=== PATIENT | female | born 1965 | race Caucasian/White ===

== ENCOUNTER 2019-07-27 14:44 | Observation (INO) | payer OTHER, SELFPAY ==
[2019-07-27] VITALS (7 sets, daily range): BP systolic 103–121; BP diastolic 74–85; PULSE 76–105; RESP 16–18; TEMP 36.1–36.7; O2SAT 98–100; BMI 33.4
--- NOTE | ~2019-07-27 | MR_ITS ---
EXAMINATION: MR brain/brain stem wo/w con EXAM DATE: 07/28/2019 10:54 INDICATION: Left-sided body paresthesia. Frontal headache. TECHNIQUE: Magnetic resonance imaging (MRI) of the brain/brain stem obtained without contrast. Sagit bon T1, axial diffusion, gradient echo (T2*), T1, T2, FLAIR sequences obtained. Patient was then inj ected with 15 cc intravenous Multihance contrast. Axial and coronal postcontrast T1 weighted sequence s obtained. Correlation is made to CTA brain from yesterday. FINDINGS: There are no areas of restricted diffusion to suggest acute infarction. There is no acute hemorrhage seen on the T2*, a hemosiderin sensitive sequence. No intraparenchymal brain mass lesion. There is minimal periventricular and subcortical T2/FLAIR signal hyperintensity, nonspecific but pro bably related to small vessel ischemic disease (microangiopathy). There are no extra-axial collecti ons. Flow voids are seen in the cerebral arteries on the T2-weighted sequences consistent with their expected patency. The orbits are unremarkable. Soft tissue is unremarkable. 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 Otherwise no areas of abnormal enhancement. IMPRESSION: 1. No acute intracranial findings. 2. Incidental right cerebellar DVA, not clinically significant finding. Reviewed, dictated and finalized at location G.
--- NOTE | ~2019-07-27 | MR_ITS ---
EXAMINATION: MR cervical spine wo/w con EXAM DATE: 07/29/2019 09:54 INDICATION: Left-sided weakness. Intermittent paresthesia. TECHNIQUE: Multi-sequential, multiplanar MR images of the cervical spine were obtained without contra st. Axial T2, axial T2 MERGE sequence. Sagittal T1, T2, T2 fat saturation images also obtained. Com parison is made to prior examination from 08/15/2018. FINDINGS: The vertebral bodies are aligned in the AP dimension. Vertebral body and disc heights are well-maintained. There are no suspicious marrow signal abnormalities. The spinal cord signal intensit y and intrinsic morphology is normal. Cervicomedullary junction is normal in appearance. Paraspinal s oft tissue is unremarkable. There are no areas of abnormal enhancement on the post contrast images. Level by level evaluation: C2-C3: Disc does not extend beyond the endplate margin. Uncovertebral joint arthropathy: None. Facet joint arthropathy: None. Neural foraminal stenosis: No stenosis. Central canal stenosis: No stenosis. C3-C4: Disc does not extend beyond the endplate margin. Uncovertebral joint arthropathy: None. Facet joint arthropathy: Mild bilateral. Neural foraminal stenosis: No stenosis. Central canal stenosis: No stenosis. C4-C5: Disc does not extend beyond the endplate margin. Uncovertebral joint arthropathy: Mild right. Facet joint arthropathy: Mild bilateral. Neural foraminal stenosis: No stenosis. Central canal stenosis: No stenosis. C5-C6: Disc does not extend beyond the endplate margin. Uncovertebral joint arthropathy: Mild bilateral. Facet joint arthropathy: Mild bilateral. Neural foraminal stenosis: No stenosis. Central canal stenosis: No stenosis. C6-C7: Disc does not extend beyond the endplate margin. Uncovertebral joint arthropathy: None. Facet joint arthropathy: None. Neural foraminal stenosis: No stenosis. Central canal stenosis: No stenosis. C7-T1: Disc does not extend beyond the endplate margin. Uncovertebral joint arthropathy: None. Facet joint arthropathy: None. Neural foraminal stenosis: No stenosis. Central canal stenosis: No stenosis. IMPRESSION: 1. Mild cervical arthropathy without stenosis. 2. Normal cord signal. Reviewed, dictated and finalized at location A.
--- NOTE | ~2019-07-27 | CT_ITS ---
EXAMINATION: CTA brain carotid DATE: 07/27/2019 16:30 CDT INDICATION: Dizziness and lightheadedness. TECHNIQUE: Computed tomographic angiography (CTA) of the head was performed without and with 100 mL O mnipaque-350 intravenous contrast. CTA of the neck was performed with intravenous contrast. The dose- length product was 907.04 mGy-cm. Maximum intensity projection and volume rendered 3D-reconstructions were created by the technologist on a separate workstation. COMPARISON: CT dated 05/17/2013 FINDINGS: HEAD CTA: Normal brain parenchymal volume. No acute intracranial hemorrhage, infarction, mass or mass effect. No ventriculomegaly or midline shift. Basilar cisterns are patent. Paranasal sinuses and mas toids are pneumatized. No depressed skull fractures. Paranasal sinuses and mastoids are pneumatized. The anterior, middle and posterior cerebral arteries are symmetric without significant stenosis or oc clusion. NECK CTA: No cervical lymphadenopathy. Thyroid gland is unremarkable. There is 0% stenosis of the proximal right internal carotid artery relative to normal distal artery l umen diameter (NASCET criteria). There is 8% stenosis of the proximal left internal carotid artery re lative to normal distal artery lumen diameter. IMPRESSION: 1. 0% stenosis of the proximal right internal carotid artery relative to normal distal artery lumen d iameter (NASCET criteria). 2. 8% stenosis of the proximal left internal carotid artery relative to normal distal artery lumen di ameter. 3: No significant intracranial vascular abnormality. No acute intracranial abnormality. Reviewed, dictated and finalized at location A. IMPRESSION: 1. 0% stenosis of the proximal right internal carotid artery relative to normal distal artery lumen diameter (NASCET criteria). 2. 8% stenosis of the proximal left internal carotid artery relative to normal distal artery lumen diameter. 3: No significant intracranial vascular abnormality. No acute intracranial abno rmality.
--- NOTE | ~2019-07-27 | XR_ITS ---
EXAMINATION: XR chest 1V 07/27/2019 16:19 INDICATION: Weakness and dizziness PROCEDURE: 2 view chest COMPARISON: 05/17/2013 FINDINGS: The lungs are clear. There is chronic right basilar atelectasis/scarring. The cardiomediast inal silhouette is within normal limits. There are no pleural effusions. There is no pneumothorax s uspected. IMPRESSION: 1: NO ACUTE CARDIOPULMONARY DISEASE. Reviewed, dictated and finalized at location A.
--- NOTE | ~2019-07-27 | US_ITS ---
EXAMINATION: US carotid duplex BI DATE: 07/28/2019 12:29 INDICATION: Cerebrovascular accident. Dizziness, lightheadedness. TECHNIQUE: Grayscale, color Doppler, and pulsed Doppler images of the cervical carotid arteries were obtained. The degree of vessel stenosis is placed in one of the following categories: normal, <50%, 5 0-69%, >=70% but less than near-occlusion, near-occlusion, or total occlusion. Note that percent sten osis relative to normal distal artery lumen diameter is indirectly measured from velocity measurement s as described by Farrukh, et al. Radiology 2003; 229:340-346. COMPARISON: 08/06/2019 CTA brain/carotid FINDINGS: RIGHT: The right common carotid artery (CCA) peak systolic velocity (PSV) is 56.6 cm/s. The right internal c arotid artery (ICA) PSV is 84.0 cm/s. The right ICA end-diastolic velocity (EDV) is 41.3 cm/s. The ri t ICA/CCA PSV ratio is 1.5. Grayscale and color Doppler images yield an estimate of less than 50% d iameter reduction from plaque in the ICA. The external carotid artery (ECA) PSV is 57.5 cm/s. There i s antegrade flow in the right vertebral artery. LEFT: The left CCA PSV is 54.7 cm/s. The left ICA PSV is 68.0 cm/s. The left ICA EDV is 3120 cm/s. The left ICA/CCA PSV ratio is 1.2. Grayscale and color Doppler images yield an estimate of less than 50% diam eter reduction from plaque in the ICA. The ECA PSV is 48.3 cm/s. There is antegrade flow in the left vertebral artery. IMPRESSION: 1. Less than 50% stenosis in the right internal carotid artery. 2. Less than 50% stenosis in the left internal carotid artery. Reviewed, dictated and finalized at Location A. Reviewed, dictated and finalized at location A.
--- NOTE | 2019-07-27 14:59 | ECG_ITS ---
Measurements Intervals [place] Rate: 95 P: 57 WA: 171 QRS: 39 QRSD: 101 T: 20 QT: 301 QTc: 379 Interpretive Statements SINUS RHYTHM LOW QRS VOLTAGE IN PRECORDIAL LEADS NONSPECIFIC ST & T-WAVE ABNORMALITY- ANTEROLAT/INF LEADS BORDERLINE ECG Electronically Signed On 07-27-2019 16:09:02 CDT by Jayden Rosas D.O.
[2019-07-27 15:17] LABS: Basophils Percent Auto 0.2 % (0.2-1.2); Eosinophils Percent Auto 0.5 % (0-4.4); Hematocrit 41.4 % (37.0-47.0); Hemoglobin 13.8 g/dL (12.0-15.0); Immature Granulocyte Absolute 0.01 K/mm3 (0.00-0.031); Immature Granulocyte Percent A 0.2 % (0-0.5); Lymphocytes Absolute Auto 2.66 K/mm3 (0.9-3.2); Lymphocytes Percent Auto 48.4 % (18.3-44.2); Mean Corpuscular HGB Conc 33.3 g/dl (32-36); Mean Platelet Volume 9.5 fl (7.4-10.4); Monocytes Absolute Auto 0.5 K/mm3 (0.1-0.6); Monocytes Percent Auto 8.2 % (2.6-8.5); Neutrophils Absolute Auto 2.3 K/mm3 (1.3-6.7); Neutrophils Percent Auto 42.5 % (45.5-73.1); Platelet Count Result 205 k/mm3 (150-375); Red Cell Distribution Width 13.4 % (11.5-14.5); White Blood Count 5.5 K/mm3 (4.5-10.0)
[2019-07-27] MEDS: SODIUM CHLORIDE 0.9% IV 1,000 ML 999 ML IV CONT ×2 (15:18→17:44)
[2019-07-27 15:28] LABS: Blood Urea Nitrogen 18 mg/dL (7-17); Calcium 8.7 mg/dL (8.4-10.2); Carbon Dioxide 30 mmol/L (22-30); Chloride 98 mmol/L (98-107); Estimated CRCL calculation 26 ml/min; Estimated Glomerular Filt Rate > 60; Glucose 156 mg/dL (65-105); Potassium 3.9 mmol/L (3.4-5.0); Sodium 134 mmol/L (137-145)
[2019-07-27 15:30] LABS: INR 0.9; Partial Thromboplastin Time 26.7 SECONDS (22.3-36.8)
[2019-07-27 15:40] LABS: Troponin I < 0.012 ng/mL (0.000-0.034)
--- NOTE | 2019-07-27 15:49 | ED.GENADULT ---
HPI - General Adult General Chief complaint: Unspecified Stated complaint: Numbness left side body - resolved Time Seen by Provider: 07/27/19 15:00 Source: patient Mode of arrival: ambulatory Limitations: no limitations History of Present Illness HPI narrative: Patient is a 53-year-old female who presents to emergency department for evaluation of having had numbness and weakness of the left side of the body that lasted a short period resolved then developed lightheadedness and headache coupled with nausea and vomiting. Patient presents per private vehicle has not had anything for her symptoms denies similar occurrence in the past patient on arrival in the room in no distress Related Data Home Medications Medication Instructions Recorded Confirmed atorvastatin 07/27/19 gabapentin 07/27/19 glimepiride mg 07/27/19 indomethacin 07/27/19 levothyroxine 07/27/19 lisinopril-hydrochlorothiazide tablet 07/27/19 metformin mg PO 07/27/19 sitagliptin [Januvia] mg 07/27/19 tramadol mg 07/27/19 Allergies Allergy/AdvReac Type Severity Reaction Status Date / Time penicillin V Allergy Mild Nausea and Verified 07/27/19 16:50 Vomiting Review of Systems Review of Systems: All systems reviewed & are unremarkable except as noted in HPI and below PMFSH Past Medical History Medical History (Updated 07/27/19 @ 18:26 by Rajendra Olvera PA-C) Obese Social History Social History Smoking status: Never smoker Exam Narrative: Exam Narrative: GENERAL: Well-appearing, well-nourished, and in no acute distress. HEAD: Normocephalic, atraumatic. EYES: PERRLA and EOMI. ENT: Nares clear, no rhinorrhea or epistaxis. Mucous membranes moist. Oropharynx without tonsillar hypertrophy exudate or other lesions. NECK: Supple. No adenopathy or masses. No carotid bruits or JVD CHEST: Clear to auscultation. No respiratory distress. No wheezes rales or rhonchi HEART: Regular rate and rhythm. No murmur heard. Normal peripheral pulses. ABDOMEN: Soft, nontender, nondistended EXTREMITIES: Normal range of motion. No edema. SKIN: Warm, dry, no rash. NEURO: No focal deficits. Alert and oriented x3. Cranial nerves II through XII grossly intact. Normal speech. Cerebellar intact. No pronator drift. Normal [id number] and brwn-vz-ebes PSYCH: Normal mood and affect. Course Consultations Consultation #1: Discussed case with hospitalist who is agreed to accept the patient Date: 07/27/19 Time: 18:20 Vital Signs Vital signs: Vital Signs Temperature 98.1 F 07/27/19 14:44 Pulse Rate 105 H 07/27/19 14:44 Respiratory Rate 18 07/27/19 14:44 Blood Pressure 121/84 07/27/19 14:44 Pulse Oximetry 100 07/27/19 14:44 Temperature 98.1 F 07/27/19 14:44 Pulse Rate 92 07/27/19 17:45 Respiratory Rate 17 07/27/19 17:45 Blood Pressure 103/74 07/27/19 17:45 Pulse Oximetry 98 07/27/19 17:45 Medical Decision Making MDM Narrative Medical decision making narrative: Patient in the room at this time in no distress aware of case findings treatment plan and diagnosis agreeing to stay in hospital for further evaluation of her dizziness lightheadedness and paresthesias patient at this time resting comfortably stroke scale of 0 hydrated in the emergency department was also given aspirin prior to admission Vital Signs Vital Signs: Vital Signs Temperature 98.1 F 07/27/19 14:44 Pulse Rate 105 H 07/27/19 14:44 Respiratory Rate 18 07/27/19 14:44 Blood Pressure 121/84 07/27/19 14:44 Pulse Oximetry 100 07/27/19 14:44 Temperature 98.1 F 07/27/19 14:44 Pulse Rate 92 07/27/19 17:45 Respiratory Rate 17 07/27/19 17:45 Blood Pressure 103/74 07/27/19 17:45 Pulse Oximetry 98 07/27/19 17:45 Lab Data Result diagrams: 07/27/19 15:12 07/27/19 15:12 Labs: Lab Results 07/27/19 07/27/19 07/27/19 Range/Units
[2019-07-27 15:51] LABS: Glucose Point of Care 165 (65-105)
[2019-07-27] MEDS: KETOROLAC 30 MG/ML VIAL (*BKC) IV PUSH (17:44)
[2019-07-27] MEDS: ASPIRIN 325 MG TABLET PO (18:30)
--- NOTE | 2019-07-27 20:08 | ADMGEN ---
This patient, Ruchi Jones, was admitted to 2 Medical Room 254-01. Patient/family oriented to hospital policies and general routines including ID bracelet, bed and alarms, visiting hours, pain management, procedures, bathroom and other care routines, personal items, smoking policy, room service/diet, and visiting hours. Valuables list has been completed. Information on how to activate the Rapid Response Team has been discussed. Patient/Family are encouraged to report perceived risks to care and to ask questions if they do not understand what they are told or what they should do.
[2019-07-27] MEDS: LACTATED RINGERS 1,000 ML 125 ML IV CONT (20:33)
[2019-07-27 21:17] LABS: Glucose Point of Care 155 (65-105)
[2019-07-27 21:17] LABS: Glucose Point of Care 118 (65-105)
--- NOTE | 2019-07-27 21:36 | PM.IMHP ---
H&P: HPI History of Present Illness Chief complaint: cva Narrative: Ruchi Jones is a 53 year old female who has a history of having diabetes type 2, hyperlipidemia, hypothyroidism, and hypertension. The patient has not had any previous TIAs or CVAs. She is on gabapentin for peripheral neuropathy to her hands and feet. The patient stated she was getting ready to eat today and she developed some numbness and tingling on the left side of her body and was having difficulty speaking. She said she could hear that her speech was garbled when she tried to talk. She stated that her left leg was numb and she could not move it. She stated that she could not walk. She had some nausea vomiting and some dizziness. The patient told her son how she was feeling and the patient was brought to the emergency room in a private vehicle. The patient does have some history of anxiety as well. The patient was in no distress when she came to the emergency room and she does not take any thing to resolve her symptoms. Patient is back to her baseline and she is not having any slurred speech or difficulty walking. The patient also stated that she had a severe headache prior to the numbness and tingling. The patient and her family are concerned that she may have had a stroke. Or possibly a TIA. CTA of the head neck shows 0% stenosis of the right internal carotid artery in a% stenosis of the left internal carotid. Normal brain nothing acute. The patient was given an aspirin in the emergency room. She was given Toradol for pain. She has chronic back pain is chronically on tramadol for 3 bulging disc. She was given IV fluids and Tylenol as well. Date of service 07/27/2019. The patient stated that she had her family member check her blood sugar prior to coming and her blood sugar was a around 150. She thought that maybe her blood sugar was low but it was not at all. Review of Systems Review of Systems: All systems reviewed & are unremarkable except as noted in HPI and below Constitutional: Constitutional: Reports as per HPI and Reports no additional constitutional complaints Eyes: Eyes: Reports as per HPI and Reports no additional eye complaints ENT: Reports system reviewed and no additional complaints, except as documented and Reports Normal hearing present Cardiovascular: Cardiovascular: Reports no additional cardiovascular complaints Respiratory: Respiratory: Reports no additional respiratory complaints and Reports no additional respiratory complaints Gastrointestinal: Gastrointestinal: Reports as per HPI and Reports no additional gastrointestinal complaints Musculoskeletal: Musculoskeletal: Reports no additional musculoskeletal complaints Integumentary/Breasts: Skin/Breast: Reports system reviewed and no additional complaints, except as docu and Reports as per HPI Neurologic: Reports system reviewed and no additional complaints, except as documented, Reports as per HPI and Reports Normal hearing present Psychiatric: Psychiatric: Reports no additional psychiatric complaints and Reports as per HPI Endocrine: Endocrine: Reports no additional endocrine complaints Hematologic/Lymphatic: Hematologic/Lymphatic: Reports no additional hematologic/lymphatic complaints Allergic/Immunologic: Allergic/Immunologic: Reports no additional allergic/immunologic complaints [facility] Past Medical History Medical History (Updated 07/27/19 @ 21:56 by Kira Paz NP) Bipolar disorder Degenerative disc disease Depression with anxiety Diabetes type 2, controlled Fibromyalgia History of DVT of lower extremity Postoperatively after her hysterectomy Hyperlipidemia Hypertension Hypothyroidism Kidney stones Lupus Obese Peripheral neuropathy Hands and feet Pulmonary emboli Postop hysterectomy Surgical History Surgical History (Updated 07/27/19 @ 21:56 by Kira Paz NP) H/O tubal ligation H/O: hysterectomy Total vaginal Status post debridement MRSA
[2019-07-27] MEDS: FAMOTIDINE 20 MG/2 ML VIAL IV PUSH (22:48)
[2019-07-27] MEDS: GABAPENTIN 300 MG CAPSULE 600 MG PO (22:49)
[2019-07-27] MEDS: TRAMADOL HCL 50 MG TABLET 100 MG PO (22:49)
[2019-07-27 23:16] LABS: Barbiturate Screen Urine Negative (Negative); Benzodiazepines Screen Urine Negative (Negative)
[2019-07-27 23:24] LABS: Amphetamine Screen Urine Negative (Negative); Cannabinoid Screen Urine Negative (Negative); Cocaine Screen Urine Negative (Negative); Methadone Screen Urine Negative (Negative); Opiate Screen Urine Negative (Negative)
[2019-07-27 23:53] LABS: Phencyclidine Screen Urine Negative (Negative)
[2019-07-28] VITALS (10 sets, daily range): BP systolic 91–118; BP diastolic 58–82; PULSE 68–83; RESP 14–16; TEMP 36–36.4; O2SAT 96–99
[2019-07-28 05:32] LABS: Blood Urea Nitrogen 15 mg/dL (7-17); Calcium 7.9 mg/dL (8.4-10.2); Carbon Dioxide 27 mmol/L (22-30); Chloride 107 mmol/L (98-107); Estimated CRCL calculation 62 ml/min; Estimated Glomerular Filt Rate > 60; Glucose 75 mg/dL (65-105); Magnesium 1.7 mg/dL (1.6-2.3); Potassium 3.6 mmol/L (3.4-5.0); Sodium 137 mmol/L (137-145)
[2019-07-28 05:34] LABS: Basophils Percent Auto 0.4 % (0.2-1.2); Eosinophils Absolute Auto 0.1 K/mm3 (0-0.3); Hematocrit 36.4 % (37.0-47.0); Hemoglobin 12.1 g/dL (12.0-15.0); Immature Granulocyte Absolute 0.01 K/mm3 (0.00-0.031); Immature Granulocyte Percent A 0.2 % (0-0.5); Lymphocytes Absolute Auto 2.33 K/mm3 (0.9-3.2); Lymphocytes Percent Auto 47.8 % (18.3-44.2); Mean Corpuscular HGB Conc 33.2 g/dl (32-36); Mean Corpuscular Volume 90.1 fl (80-100); Mean Platelet Volume 9.4 fl (7.4-10.4); Monocytes Absolute Auto 0.4 K/mm3 (0.1-0.6); Monocytes Percent Auto 7.6 % (2.6-8.5); Neutrophils Absolute Auto 2.1 K/mm3 (1.3-6.7); Platelet Count Result 170 k/mm3 (150-375); Red Blood Count 4.04 M/mm3 (4.2-5.4); Red Cell Distribution Width 13.6 % (11.5-14.5); White Blood Count 4.9 K/mm3 (4.5-10.0)
[2019-07-28 06:38] LABS: Folic Acid 8.1 ng/mL (2.76->20); Thyroid Stimulating Hormone Reflex 0.363 uIU/mL (0.465-4.68)
[2019-07-28 06:44] LABS: Glucose Point of Care 72 (65-105)
[2019-07-28] MEDS: LEVOTHYROXINE SODIUM 75 MCG TABLET PO (06:44)
[2019-07-28] MEDS: MAGNESIUM SULF 2 GM/WATER 50ML 2 GM/50 ML BAG IVPB (08:11)
[2019-07-28] MEDS: FAMOTIDINE 20 MG/2 ML VIAL IV PUSH ×2 (08:12→20:49)
[2019-07-28] MEDS: GLIMEPIRIDE 2 MG TABLET PO (08:12)
[2019-07-28] MEDS: ASPIRIN 81 MG ENTERIC TABLET PO (08:12)
[2019-07-28] MEDS: ATORVASTATIN 20 MG TABLET PO (08:12)
[2019-07-28] MEDS: GABAPENTIN 300 MG CAPSULE 600 MG PO ×3 (08:12→20:49)
[2019-07-28] MEDS: INDOMETHACIN 25 MG CAPSULE 50 MG PO (08:13)
[2019-07-28] MEDS: TRAMADOL HCL 50 MG TABLET 100 MG PO ×2 (08:13→20:49)
[2019-07-28] MEDS: ONDANSETRON INJ 4 MG/2 ML VIAL IV PUSH (11:50)
--- NOTE | 2019-07-28 12:03 | PC.NURSE ---
Patient returned from MRI and is now complaining of left arm numbness and weakness and a headache rated 10/10. Patient also states she is nauseated. 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 Light sensitivity noted to left eye especially. VSS: HR 75, BP 120/80, pulse ox 99% on room air and RR 20. Ariana Templeton PA here to see patient and informed of patient complaints.
[2019-07-28 12:04] LABS: Glucose Point of Care 163 (65-105)
--- NOTE | 2019-07-28 13:48 | CONS_ITS ---
DATE OF CONSULTATION: 07/27/2019 HISTORY OF PRESENT ILLNESS: A 53-year-old right-handed female has been admitted to the hospital through the emergency room for the possibility of the stroke. As per the information available, she was getting ready to eat when she developed numbness and tingling on the left side of her body and started having difficulties in speech. She herself could appreciate that her speech was garbled. At the same time, her left lower extremity became numb and she had difficulties in moving it. She was unable to walk and also she felt somewhat nauseous and dizzy. Her son brought her to the emergency room. She is known to have anxiety, though she does not take any specific medication for that. By the time she came to the emergency room, her neuro status was to the baseline, but she complained of headache. Raising the possibility of stroke, further evaluation was done in the emergency room. The CTA of the head and neck revealed no significant stenosis of the internal carotid arteries and so as the intracranial circulation. She was started on aspirin, given Toradol for the pain. She does have a history of chronic back pain because of the underlying bulging disk. Additionally, she has ongoing history of: 1. Type 2 diabetes mellitus. 2. Hyperlipidemia. 3. Hypothyroidism. 4. Hypertension. 5. Degenerative disk disease. 6. Anxiety with depression, underlying bipolar disorder. 7. Renal stones. 8. Lupus. 9. Peripheral neuropathy secondary to underlying diabetes mellitus, but also history of pulmonary emboli during postop hysterectomy. She has also undergone debridement for the MRSA to the left lower extremity. SOCIAL HISTORY: She is never drinker, used to be former smoker. MEDICATIONS: At the time of admission to the hospital, she was taking multiple medications, which were listed: 1. Atorvastatin 20 mg daily. 2. Gabapentin 600 mg 3 times a day. 3. Glimepiride 2 mg daily. 4. Indomethacin 5 mg daily. 5. Levothyroxine 75 daily. 6. Lisinopril with hydrochlorothiazide 1 tablet daily. 7. Metformin 1000 mg daily. 8. Sitagliptin 100 mg daily. 9. Tramadol 100 mg twice a day. ALLERGIES: SHE IS ALLERGIC TO PENICILLIN V. PHYSICAL EXAMINATION: VITAL SIGNS: On initial evaluation, she was found to be afebrile, normotensive with pulse of 105, pulse ox 100. GENERAL: Examination revealed her to be awake, alert, cooperative, in no obvious acute distress. HEENT: Head was normocephalic with no cranial bruits. Ear, nose, throat examination was normal. NECK: Supple with no cervical bruits. No thyromegaly. No lymphadenopathy. HEART: Regular with no murmur. LUNGS: Clear to auscultation. ABDOMEN: Soft with no organomegaly. NEUROLOGICAL: She is awake, alert, oriented x3. Speech not dysphasic, not dysarthric, not dysphonic. Pupils round, regular. Paige of vision full. Extraocular movements full. Face symmetrical. Tongue midline. Motor examination revealed her to have no drift of one side or other side. Reflexes are symmetrical. Plantars are downgoing. There is no evidence of gross cerebellar deficit. LABORATORY DATA: Evaluation up until now has documented her to have normal CBC, normal basic metabolic panel with sodium of 134, glucose of 156, troponin less than 0.012. IMAGING DATA: Negative CT scan of the head, negative CTA of the head and neck and negative MRI of the brain as well except the incidental right cerebellar developmental venous anomaly. Plan at this stage is to continue her atorvastatin, diabetic treatment and also aspirin 81 mg daily. She could have as an outpatient EMG nerve conduction study also for the documentation of the neuropathic process. [place]
--- NOTE | 2019-07-28 13:55 | PM.IMPN ---
Progress Note: A&P Assessment and Plan (1) Left sided numbness: Code(s): R20.0 - Anesthesia of skin Status: Acute Assessment and Plan: Patient describes a 3-month history of intermittent episodes of numbness/tingling/shooting pain down left arm and left leg. These episodes occur almost daily and sometimes multiple times per day over the last 3 months. Left arm and leg are weaker than right on exam. She describes she sometimes recently feels like her left foot is dragging a bit. MRI brain shows no acute intracranial findings and an incidental right cerebellar venous anomaly not felt to be clinically significant. Patient denies family history of MS. Neurology consulted - appreciate recommendations. Obtain MRI c-spine to rule out further lesions. Symptoms may be secondary to complex migraine if MRI is clear. (2) Migraine: Qualifiers: Intractability: not intractable Migraine type: unspecified Status migrainosus presence: without status migrainosus Qualified Code(s): G43.909 - Migraine, unspecified, not intractable, without status migrainosus Code(s): G43.909 - Migraine, unspecified, not intractable, without status migrainosus Status: Acute Assessment and Plan: Patient notes, in addition to the symptoms above, she started with a new headache yesterday that has been persistent. She has photophobia and nausea. She notes a remote history of migraines. Continue supportive care with pain control and antiemetic. 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 Continue to monitor accu-cheks and cover with SSI. Continue home glimepiride and Januvia. Home metformin is held. (4) Hypertension: Qualifiers: Hypertension type: unspecified Qualified Code(s): I10 - Essential (primary) hypertension Code(s): I10 - Essential (primary) hypertension Status: Chronic Assessment and Plan: With some BP readings on the lower end, home lisinopril-HCTZ held. Monitor BP and adjust treatment as needed. (5) Hyperlipidemia: Qualifiers: Hyperlipidemia type: unspecified Qualified Code(s): E78.5 - Hyperlipidemia, unspecified Code(s): E78.5 - Hyperlipidemia, unspecified Status: Chronic Assessment and Plan: Continue with atorvastatin (6) Depression with anxiety: Code(s): F41.8 - Other specified anxiety disorders Status: Chronic Assessment and Plan: Stable today. Not on any medications. Continue to monitor. (7) Hypothyroidism: Qualifiers: Hypothyroidism type: unspecified Qualified Code(s): E03.9 - Hypothyroidism, unspecified Code(s): E03.9 - Hypothyroidism, unspecified Status: Chronic Assessment and Plan: Continue home synthroid. (8) Fibromyalgia: Code(s): M79.7 - Fibromyalgia Status: Chronic Assessment and Plan: Continue with her Ultram and gabapentin. Subjective Date/time seen: 07/28/19 1245 Interval history: Ms. Jones is a 53yo F admitted for left-sided numbness, tingling, and pain. She describes a significant headache which she notes is frontal and goes down the back of her head and neck. She is having sensitivity to light and nausea without emesis. She describes numbness and tingling to her left arm and left leg that is intermittent and has been occurring over the last 3 months. She describes a shooting pain down her arm and leg when thi
[2019-07-28 16:33] LABS: Glucose Point of Care 143 (65-105)
[2019-07-28 20:59] LABS: Glucose Point of Care 132 (65-105)
[2019-07-29] VITALS: BP 98/54; PULSE 78; PULSE 80; RESP 16; TEMP 36.3; O2SAT 98
[2019-07-29 04:00] VITALS: BP 98/67; PULSE 71; PULSE 77; RESP 16; TEMP 36.1; O2SAT 98
[2019-07-29] MEDS: LEVOTHYROXINE SODIUM 75 MCG TABLET PO (05:57)
[2019-07-29 06:10] LABS: Free T4 Free Thyroxine Reflex 1.23 ng/dL (0.78-2.19)
[2019-07-29 06:18] LABS: Glucose Point of Care 112 (65-105)
[2019-07-29 08:00] VITALS: PULSE 88
[2019-07-29] MEDS: GABAPENTIN 300 MG CAPSULE 600 MG PO ×2 (08:55→13:22)
[2019-07-29] MEDS: TRAMADOL HCL 50 MG TABLET 100 MG PO (08:56)
[2019-07-29] MEDS: ASPIRIN 81 MG ENTERIC TABLET PO (08:56)
[2019-07-29] MEDS: FAMOTIDINE 20 MG/2 ML VIAL IV PUSH (08:56)
[2019-07-29] MEDS: ATORVASTATIN 20 MG TABLET PO (08:56)
[2019-07-29] MEDS: GLIMEPIRIDE 2 MG TABLET PO (08:56)
[2019-07-29] MEDS: INDOMETHACIN 25 MG CAPSULE 50 MG PO (08:56)
--- NOTE | 2019-07-29 09:02 | PC.NURSE ---
To MRI via wheelchair with transporter
[2019-07-29 10:00] VITALS: BP 134/88; PULSE 77; RESP 16; TEMP 36.3; O2SAT 100
[2019-07-29 11:37] LABS: Glucose Point of Care 102 (65-105)
[2019-07-29 12:00] VITALS: PULSE 77
--- NOTE | 2019-07-29 12:51 | WPDNEUROPN ---
Progress Note: A&P Assessment and Plan (1) Migraine: Qualifiers: Migraine type: unspecified Status migrainosus presence: without status migrainosus Intractability: not intractable Qualified Code(s): G43.909 - Migraine, unspecified, not intractable, without status migrainosus Code(s): G43.909 - Migraine, unspecified, not intractable, without status migrainosus Status: Acute (2) Left sided numbness: Code(s): R20.0 - Anesthesia of skin Status: Acute (3) Fibromyalgia: Code(s): M79.7 - Fibromyalgia Status: Chronic (4) Degenerative disc disease: Status: Chronic (5) Hypothyroidism: Qualifiers: Hypothyroidism type: unspecified Qualified Code(s): E03.9 - Hypothyroidism, unspecified Code(s): E03.9 - Hypothyroidism, unspecified Status: Chronic (6) Bipolar disorder: Code(s): F31.9 - Bipolar disorder, unspecified Status: Chronic (7) Depression with anxiety: Code(s): F41.8 - Other specified anxiety disorders Status: Chronic (8) Lupus: Code(s): M32.9 - Systemic lupus erythematosus, unspecified Status: Chronic (9) Peripheral neuropathy: Code(s): G62.9 - Polyneuropathy, unspecified Status: Chronic (10) Hyperlipidemia: Qualifiers: Hyperlipidemia type: unspecified Qualified Code(s): E78.5 - Hyperlipidemia, unspecified Code(s): E78.5 - Hyperlipidemia, unspecified Status: Chronic (11) Diabetes type 2, controlled: Qualifiers: 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 use: without watermelon harvesting supervisor use Diabetes mellitus complication status: without complication Qualified Code(s): E11.9 - Type 2 diabetes mellitus without complications Code(s): E11.9 - Type 2 diabetes mellitus without complications Status: Chronic (12) Brain TIA: Code(s): G45.9 - Transient cerebral ischemic attack, unspecified Status: Acute (13) Hypertension: Qualifiers: Hypertension type: unspecified Qualified Code(s): I10 - Essential (primary) hypertension Code(s): I10 - Essential (primary) hypertension Status: Chronic Additional Plan trial of immitrex Review of Systems Review of Systems: All systems reviewed & are unremarkable except as noted in HPI and below Exam Const: General: healthy appearing Eyes: General: appearance normal, both eyes and all related structures Neck: Neck: full ROM Resp: Auscultation: clear to auscultation bilaterally Neuro: General: patient oriented x3 Cranial nerves: Yes CN's II-XII intact bilaterally Cognition (Neuro): normal cognition Motor exam (neuro): 5/5 motor strength present throughout Psych: Appearance: grossly normal Mental Status: mental status grossly normal Affect: normal affect Attitude: cooperative Thought process: Normal thought process present Thought content: Yes Normal thought content present Insight: Fair insight present (Psych) Judgement: Fair judgement present (Psych) Objective Data Vital Signs Vital Signs: Vital Signs - 24 hr 07/28/19 14:00 07/28/19 16:00 07/28/19 17:53 Temperature 36.1 C L 36.4 C L Pulse Rate 73 72 81 Respiratory Rate 14 14 Blood Pressure 118/79 113/70 Pulse Oximetry 99 97 07/28/19 20:00 07/29/19 00:00 07/29/19 04:00 Temperature 36.2 C L 36.3 C L 36.1 C L Pulse Rate 80 78 77 Respiratory Rate 16 16 16 Blood Pressure 108/77 98/54 L 98/67 L Pulse Oximetry 99 98 98 07/29/19 08:00 07/29/19 10:00 Temperature 36.3 C L Pulse Rate 88 77 Respiratory Rate 16 Blood Pressure 134/88 Pulse Oximetry 100 Intake/Output Intake/Output: Intake & Output 07/26/19 07/27/19 07/28/19 07/29/19 23:59 23:59 23:59 23:59 Intake Total 2225 1470 300 Output Total 520 400 Balance 2225 950 -100 Meds/Results Medications: Active Medications Generic Name Dose Route Start Last Admin Trade Name Freq PRN Reason Stop Dose Admin Aspirin 81 mg 07/28/19
[2019-07-29] MEDS: SUMAtriptan SUCCINATE 25 MG TABLET PO (13:22)
[2019-07-29 14:00] VITALS: BP 118/74; PULSE 65; RESP 18; TEMP 36.3; O2SAT 96
--- NOTE | 2019-07-29 14:57 | PM.DS ---
DS: Diagnosis Admitting Diagnosis Admitting Diagnosis: Transient cerebral ischemic attack, unspecified Discharge Diagnosis (1) Left sided numbness: Code(s): R20.0 - Anesthesia of skin Status: Acute Assessment and Plan: Date of Service 07/29/19 Ms. Jones is a 53yo F with history of hypertension, hyperlipidemia, hypothyroidism, fibromyalgia, anxiety, depression, and bipolar disorder who presented to the ED for evaluation of headache and slurred speech. She described intermittent numbness, tingling, shooting pain to left arm and left leg that had been occurring for around 3 months. Her headache was new and began the day prior to arrival with associated photosensitivity and nausea. She continued to have a headache throughout her admission which was her main complaint. MRI brain showed no acute intracranial findings, incidental right cerebellar developmental venous anomaly was present, nonspecific small hyperdensity present. She denied family history of MS. Carotid Dopplers were within normal limits. C-spine MRI was obtained and unremarkable. Etiology of her symptoms unclear, but could be associated with complex migraine. She was evaluated by Neurology, Dr. Forte, who recommended electromyography ( EMG ) as an outpatient. Her left arm and left leg strength was weaker compared to right on exam however she was still able to ambulate independently. She was given a trial of Imitrex for her migraine. She was hemodynamically stable for discharge 07/29/2019 with instructions to call Dr. Forte's office tomorrow to schedule EMG and also follow-up with primary care. She was educated on return to ER instructions for any worsening symptoms. Consultation: - Neurolog - Dr Forte (2) Migraine: Qualifiers: Migraine type: unspecified Status migrainosus presence: without status migrainosus Intractability: not intractable Qualified Code(s): G43.909 - Migraine, unspecified, not intractable, without status migrainosus Code(s): G43.909 - Migraine, unspecified, not intractable, without status migrainosus Status: Acute Assessment and Plan: Patient notes, in addition to the symptoms above, she started with a new headache yesterday that has been persistent. She has photophobia and nausea. She notes a remote history of migraines as a teenager but non since then. Trial of imitrex. (3) Diabetes type 2, controlled: Qualifiers: Diabetes mellitus termination clerk insulin use: without termination clerk use Diabetes mellitus complication status: without complication Qualified Code(s): E11.9 - Type 2 diabetes mellitus without complications Code(s): E11.9 - Type 2 diabetes mellitus without complications Status: Chronic Assessment and Plan: A1c 6.0. Blood sugars stable, continue home oral hypoglycemics and follow up with PCP. (4) Hypertension: Qualifiers: Hypertension type: unspecified Qualified Code(s): I10 - Essential (primary) hypertension Code(s): I10 - Essential (primary) hypertension Status: Chronic Assessment and Plan: With some BP readings on the lower end, home lisinopril-HCTZ held. BP more stable at discharge - resume her home medications at discharge and follow up with PCP. (5) Hyperlipidemia: Qualifiers: Hyperlipidemia type: unspecified Qualified Code(s): E78.5 - Hyperlipidemia, unspecified Code(s): E78.5 - Hyperlipidemia, unspecified Status: Chronic Assessment and Plan: Continue with atorvastatin (6) Depression with anxiety: Code(s): F41.8 - Other specified anxiety disorders Status: Chronic Assessment and Plan: Stable today. Not on any medications. Continue to monitor. (7) Hypothyroidism: Qualifiers: Hypothyro
== END 2019-07-29 16:25 | disposition home or self-care (01) ==
LOC: ANHED 18:35 → ANH2MED 07-28 07:14
PROVIDERS: Emergency Medicine Emergency Medical Services; Nurse Practitioner; Admitting Provider Internal Medicine; Emergency Provider Emergency Medicine; PCP Family Medicine Adolescent Medicine; Visit Provider Physician Assistant
DX: G43.909 Migraine, unspecified, not intractable, without status migrainosus (principal); R20.0 Anesthesia of skin; E11.42 Type 2 diabetes mellitus with diabetic polyneuropathy; I10 Essential (primary) hypertension; E78.5 Hyperlipidemia, unspecified; F41.8 Other specified anxiety disorders; E03.9 Hypothyroidism, unspecified; M79.7 Fibromyalgia; M32.9 Systemic lupus erythematosus, unspecified; F31.9 Bipolar disorder, unspecified; Z79.84 Long term (current) use of oral hypoglycemic drugs; Z79.899 Other long term (current) drug therapy; Z86.711 Personal history of pulmonary embolism; Z86.718 Personal history of other venous thrombosis and embolism; Z87.891 Personal history of nicotine dependence; Z88.0 Allergy status to penicillin
CPT/HCPCS: 36415; 70496; 70498; 70553; 71045; 72156; 80048; 80307; 81025; 82607; 82746; 82948; 83036; 83735; 84439; 84443; 84480; 84484; 85025; 85610; 85730; 93005; 93880; 96361; 96365; 96374; 96375; 96376; 99285; A9270; A9577; G0378; G0379; J0131; J1885; J2405; J3475; J7030; J7120; Q9967

== ENCOUNTER 2019-10-04 08:13 | Outpatient (CLI) | payer OTHER, SELFPAY ==
--- NOTE | 2019-10-04 10:45 | NEURO_ITS ---
Patient Number: [id number] Impression: # Complains of pain and numbness of hands. # Left Carpal Tunnel Syndrome. # Non-localizing left ulnar neuropathy. # Normal needle/EMG exam. Nerve Conduction Studies Anti Sensory Summary Table Stim Site NR Peak (ms) P-T Amp (?V) Site1 Site2 Delta-P (ms) Dist (cm) Tai (m/s) Left Median Anti Sensory (2-3nd Digit) Wrist 3.8 61.8 Wrist 2-3nd Digit 3.8 14.0 37 Wrist 3.8 97.3 Wrist 2-3nd Digit 3.8 14.0 37 Right Median Anti Sensory (2-3nd Digit) Wrist 3.2 50.0 Wrist 2-3nd Digit 3.2 14.0 44 Wrist 3.3 29.9 Wrist 2-3nd Digit 3.2 14.0 44 Left Radial Anti Sensory (Base 1st Digit) Wrist 2.0 57.6 Wrist Base 1st Digit 2.0 0.0 Right Radial Anti Sensory (Base 1st Digit) Wrist 2.1 30.1 Wrist Base 1st Digit 2.1 0.0 Left Ulnar Anti Sensory (5th Digit) Wrist 2.7 79.7 Wrist 5th Digit 2.7 14.0 52 Right Ulnar Anti Sensory (5th Digit) Wrist 2.3 61.7 Wrist 5th Digit 2.3 14.0 61 Motor Summary Table Stim Site NR Onset (ms) O-P Amp (mV) Site1 Site2 Delta-0 (ms) Dist (cm) Tai (m/s) Left Median Motor (Abd Poll Brev) Wrist 4.5 4.0 Elbow Wrist 4.8 26.0 54 Elbow 9.3 2.5 Right Median Motor (Abd Poll Brev) Wrist 3.4 1.4 Elbow Wrist 4.4 24.0 55 Elbow 7.8 0.9 Left Ulnar Motor (Abd Dig Minimi) Wrist 2.7 7.9 A Elbow Wrist 5.2 25.0 48 A Elbow 7.9 6.9 B Elbow Wrist 4.3 20.0 47 B Elbow 7.0 5.4 Right Ulnar Motor (Abd Dig Minimi) Wrist 2.6 6.1 A Elbow Wrist 4.8 26.0 54 A Elbow 7.4 5.3 F Wave Studies NR F-Lat (ms) L-R F-Lat (ms) Left Median (Mrkrs) (Abd Poll Brev) 27.98 0.38 Right Median (Mrkrs) (Abd Poll Brev) 27.60 0.38 Left Ulnar (Mrkrs) (Abd Dig Min) 27.89 1.29 Right Ulnar (Mrkrs) (Abd Dig Min) 26.61 1.29 EMG Side Muscle Nerve Root Ins Act Fibs Amp Dur Recrt Comment Right 1stDorInt Ulnar C8-T1 Nml Nml Nml Nml Nml Right Ext Indicis Radial (Post Int) C7-8 Nml Nml Nml Nml Nml Right Ext Digitorum Radial (Post Int) C7-8 Nml Nml Nml Nml Nml Right BrachioRad Radial C5-6 Nml Nml Nml Nml Nml Right PronatorTeres Median C6-7 Nml Nml Nml Nml Nml Right Abd Poll Brev Median C8-T1 Nml Nml Nml Nml Nml Left 1stDorInt Ulnar C8-T1 Nml Nml Nml Nml Nml Left Ext Indicis Radial (Post Int) C7-8 Nml Nml Nml Nml Nml Left Ext Digitorum Radial (Post Int) C7-8 Nml Nml Nml Nml Nml Left BrachioRad Radial C5-6 Nml Nml Nml Nml Nml Left PronatorTeres Median C6-7 Nml Nml Nml Nml Nml Left Abd Poll Brev Median C8-T1 Nml Nml Nml Nml Nml MTDD
== END 2019-10-04 08:14 | disposition home or self-care (01) ==
LOC: ANHNEURO 08:15
PROVIDERS: PCP Family Medicine Adolescent Medicine; Visit Provider Psychiatry & Neurology Neurology
DX: G56.02 Carpal tunnel syndrome, left upper limb (principal); G56.22 Lesion of ulnar nerve, left upper limb
CPT/HCPCS: 95886; 95911

== ENCOUNTER 2019-10-23 10:42 | Outpatient (CLI) | payer OTHER, SELFPAY ==
[2019-10-23 11:26] LABS: Alanine Aminotransferase 31 U/L (4-35); Albumin Level 4.1 g/dL (3.5-5.1); Alkaline Phosphatase 80 U/L (38-126); Anion Gap 10.2 mmol/L (7-16); Aspartate Amino Transferase 29 U/L (14-36); Blood Urea Nitrogen 18 mg/dL (7-17); Calcium 8.7 mg/dL (8.4-10.2); Carbon Dioxide 27 mmol/L (22-30); Chloride 103 mmol/L (98-107); Cholesterol 169 mg/dL (0-200); Estimated Glomerular Filt Rate > 60; Glucose 154 mg/dL (65-105); HDL Direct 55 mg/dL; Potassium 4.2 mmol/L (3.4-5.0); Sodium 136 mmol/L (137-145); Triglycerides 97 mg/dL (<150)
[2019-10-23 11:37] LABS: LDL Cholesterol Direct 90 mg/dL
[2019-10-23 11:57] LABS: Thyroid Stimulating Hormone 0.272 uIU/mL (0.465-4.680)
== END 2019-10-23 10:43 | disposition home or self-care (01) ==
PROVIDERS: PCP Family Medicine Adolescent Medicine; Visit Provider Physician Assistant
DX: E11.42 Type 2 diabetes mellitus with diabetic polyneuropathy (principal); I10 Essential (primary) hypertension; E78.00 Pure hypercholesterolemia, unspecified; E03.9 Hypothyroidism, unspecified
CPT/HCPCS: 36415; 80053; 80061; 84443

== ENCOUNTER 2020-01-22 12:27 | Outpatient (CLI) | payer OTHER, SELFPAY ==
--- NOTE | 2020-01-23 09:19 | WPDNEUROLOGY ---
Neurology EEG Report General Information Date of Study: 01/22/20 TEST eeg DIAGNOSIS seizures CONDITION OF RECORDING Awake drowsy and sleep EEG NUMBER [id number] CLINICAL HISTORY patient reported she was here in the hospital 6 months ago for episodes of extreme weakness, aphasia and confusion and still having these symptoms periodically EEG DESCRIPTION basic resting occipital frequency consists of low to medium voltage 8 to 10 hertz per 2nd alpha admixed with low-voltage 15 to 18 hertz per 2nd beta during brief periods of wakefulness. During drowsiness low-voltage beta activity seen diffusely admixed with waxing and waning posterior alpha rhythm. Bilateral symmetrical sleep activity seen during sleep. Hyperventilation not done photic stimulation produced poor Dr.. Non paroxysmal. Nonfocal. Nonlateralizing. IMPRESSION No significant abnormalities noted
== END 2020-01-22 12:28 | disposition home or self-care (01) ==
PROVIDERS: PCP Family Medicine Adolescent Medicine; Visit Provider Psychiatry & Neurology Neurology
DX: R56.9 Unspecified convulsions (principal)
CPT/HCPCS: 95816

== ENCOUNTER 2020-10-03 09:34 | Outpatient (CLI) | payer OTHER, SELFPAY ==
[2020-10-03 19:24] LABS: Alanine Aminotransferase 25 U/L (4-35); Albumin Level 4.1 g/dL (3.5-5.1); Alkaline Phosphatase 95 U/L (38-126); Anion Gap 9 mmol/L (8-16); Aspartate Amino Transferase 24 U/L (14-36); Bilirubin,Total 1.3 mg/dL (0.2-1.3); Blood Urea Nitrogen 20 mg/dL (7-17); Calcium 9.4 mg/dL (8.4-10.2); Carbon Dioxide 26 mmol/L (22-30); Chloride 98 mmol/L (98-107); Cholesterol 170 mg/dL (0-200); Estimated Glomerular Filt Rate > 60; Glucose 233 mg/dL (65-110); HDL Direct 52 mg/dL; Sodium 133 mmol/L (137-145); Triglycerides 123 mg/dL (<150)
[2020-10-03 19:25] LABS: Hemoglobin A1C 9.8 % (<5.7)
[2020-10-03 19:35] LABS: LDL Cholesterol Direct 89 mg/dL
== END 2020-10-03 09:35 | disposition home or self-care (01) ==
LOC: ANHBWCLAB 09:36
PROVIDERS: PCP Family Medicine Adolescent Medicine; Visit Provider Family Medicine Adolescent Medicine
DX: E11.42 Type 2 diabetes mellitus with diabetic polyneuropathy (principal); E78.00 Pure hypercholesterolemia, unspecified; E03.9 Hypothyroidism, unspecified
CPT/HCPCS: 36415; 80053; 80061; 83036; 84443

== ENCOUNTER 2020-11-25 17:26 | Outpatient (CLI) | payer OTHER, SELFPAY ==
--- NOTE | ~2020-11-25 | MM_ITS ---
EXAMINATION: MM screening ashley BI w radha HISTORY: Screening mammogram TECHNIQUE: Craniocaudal and mediolateral oblique 3-D tomosynthesis images were obtained and synthetic 2-D images were generated. CAD analysis was submitted and interpreted. COMPARISON: 05/10/2018, 02/09/2016, 02/18/2015 bilateral digital screening mammogram examinations BREAST PARENCHYMAL COMPOSITION: There are scattered areas of fibroglandular density. FINDINGS: There is no evidence of suspicious mass, calcification, or architectural distortion to sugg est malignancy in either breast. There has been no suspicious interval change. IMPRESSION: 1. No mammographic evidence of malignancy. 2. Recommend routine screening mammography in one year. BI-RADS Category 1: Negative Reviewed, dictated and finalized at location A.
== END 2020-11-25 17:27 | disposition home or self-care (01) ==
LOC: ANHIMG 17:28
PROVIDERS: PCP Family Medicine Adolescent Medicine; Visit Provider Nurse Practitioner Obstetrics & Gynecology
DX: Z12.31 Encounter for screening mammogram for malignant neoplasm of breast (principal)
CPT/HCPCS: 77063; 77067

== ENCOUNTER 2021-04-08 12:52 | Outpatient (CLI) | payer OTHER, SELFPAY ==
--- NOTE | 2021-04-09 10:36 | NEURO_ITS ---
This report was recreated on account [id number]. Original report was signed by Dr. Iván Forte on 04/09/21 at 1036. Neurology EEG Report General Information Date of Study: 04/08/21 TEST eeg DIAGNOSIS seizure disorder CONDITION OF RECORDING awake drowsy and sleep EEG NUMBER [id number] CLINICAL HISTORY patient reported she started having episodes of spacing out 2 years ago and has at least 3 to 4 times per month EEG DESCRIPTION basic resting occipital frequency consists of large amount of well-organized low to medium voltage 8 to 10 hertz per 2nd alpha admixed with low-voltage 15 to 18 hertz per 2nd beta. Low-voltage beta activity seen diffusely admixed with waxing and waning posterior alpha rhythm during drowsiness. Bilateral symmetrical sleep activity seen during sleep. Hyperventilation not done. Photic stimulation produced normal drive. Throughout the tracing intermittent left-sided slow Scharff Fe are noted. Questionably paroxysmal, focal and lateralizing. IMPRESSION Abnormal record due to the presence of left-sided low voltage sharp wave transients. These finding could be suggestive of localization-related epilepsy. Clinical correlation recommended and if warranted sleep-deprived EEG recommended. This dictation may have been done utilizing a voice recognition system. Attempts have been made to correct errors. However, there may be uncorrected grammatical, spelling, and recognition errors present. Report Initialized date/time: Iván Forte MD 04/09/21 / 1036 Electronically signed by: Iván Forte MD 04/09/[address] [facility]
== END 2021-04-08 12:53 | disposition home or self-care (01) ==
PROVIDERS: PCP Family Medicine Adolescent Medicine; Visit Provider Psychiatry & Neurology Neurology
DX: Z78.0 Asymptomatic menopausal state (principal); G40.909 Epilepsy, unspecified, not intractable, without status epilepticus; R94.01 Abnormal electroencephalogram [EEG]
CPT/HCPCS: 95816

== ENCOUNTER 2021-04-15 11:16 | Outpatient (CLI) | payer OTHER, SELFPAY ==
[2021-04-15 12:10] LABS: Uric Acid 4.3 mg/dL (2.5-7.5)
[2021-04-15 12:53] LABS: Hemoglobin A1C 7.2 % (<5.7)
== END 2021-04-15 11:17 | disposition home or self-care (01) ==
PROVIDERS: PCP Family Medicine Adolescent Medicine; Visit Provider Physician Assistant
DX: E11.9 Type 2 diabetes mellitus without complications (principal); M79.644 Pain in right finger(s)
CPT/HCPCS: 36415; 83036; 84550

== ENCOUNTER 2022-07-16 09:49 | Outpatient (CLI) | payer OTHER, SELFPAY ==
[2022-07-16 10:28] LABS: Alanine Aminotransferase 42 U/L (6-35); Albumin Level 4.3 g/dL (3.5-5.1); Alkaline Phosphatase 100 U/L (38-126); Anion Gap 6 mmol/L (8-16); Aspartate Amino Transferase 30 U/L (14-36); Blood Urea Nitrogen 16 mg/dL (7-17); Calcium 8.5 mg/dL (8.4-10.2); Carbon Dioxide 28 mmol/L (22-30); Chloride 95 mmol/L (98-107); Cholesterol 175 mg/dL (0-200); Estimated Glomerular Filt Rate > 60; Glucose 353 mg/dL (65-110); HDL Direct 48 mg/dL; Sodium 129 mmol/L (137-145); Triglycerides 153 mg/dL (<150)
[2022-07-16 10:39] LABS: LDL Cholesterol Direct 93 mg/dL
[2022-07-16 10:46] LABS: Hemoglobin A1C 10.8 % (<5.7)
== END 2022-07-16 09:50 | disposition home or self-care (01) ==
PROVIDERS: PCP Family Medicine Adolescent Medicine; Visit Provider Nurse Practitioner Family
DX: E03.9 Hypothyroidism, unspecified (principal); E11.42 Type 2 diabetes mellitus with diabetic polyneuropathy; E78.00 Pure hypercholesterolemia, unspecified; I10 Essential (primary) hypertension
CPT/HCPCS: 36415; 80053; 80061; 83036; 84443

== ENCOUNTER 2022-11-16 09:12 | Outpatient (CLI) | payer OTHER, SELFPAY ==
[2022-11-16 11:54] LABS: Folic Acid 11.8 ng/mL (2.76->20)
== END 2022-11-16 09:13 | disposition home or self-care (01) ==
PROVIDERS: PCP Family Medicine Adolescent Medicine; Visit Provider Student in an Organized Health Care Education/Training Program
DX: R41.3 Other amnesia (principal)
CPT/HCPCS: 36415; 82607; 82746; 84443

== ENCOUNTER 2023-06-22 10:49 | Observation (INO) | payer OTHER, SELFPAY ==
[2023-06-22] VITALS (16 sets, daily range): BP systolic 108–140; BP diastolic 77–98; PULSE 88–110; RESP 13–23; TEMP 36.4–36.9; O2SAT 96–100; BMI 27.3
--- NOTE | ~2023-06-22 | MR_ITS ---
EXAMINATION: MR brain/brain stem wo/w con DATE: 06/23/2023 07:57 INDICATION: Transient ischemic attack. Left hemiparesis. TECHNIQUE: Magnetic resonance imaging (MRI) of the brain and brainstem was performed without and with 15 mL MultiHance intravenous contrast. COMPARISON: None. FINDINGS: There are scattered areas of nonspecific increased T2-weighted signal intensity in the cere bral white matter. There is no intracranial hemorrhage, acute infarction, or abnormal intracranial ma ss lesion. The ventricles are normal in size. There is mild mucosal thickening in left maxillary sinu s. The orbits are normal. There is a small right mastoid effusion. IMPRESSION: 1. Mild nonspecific cerebral white matter disease, which likely represents chronic small vessel ische triny disease. Reviewed, dictated and finalized at location A. IMPRESSION: 1. Mild nonspecific cerebral white matter disease, which likely represents data support analyst nidia small vessel ischemic disease.
--- NOTE | ~2023-06-22 | XR_ITS ---
Clinical Indication: Cough PA and lateral views of the chest: Comparison: None Findings: The lungs are clear, without evidence of focal consolidation or pleural effusion. Cardiome diastinal silhouette is within normal limits. Bones and soft tissues are unremarkable. Impression: Normal chest. Reviewed, dictated and finalized at location . Impression: Normal chest.
--- NOTE | ~2023-06-22 | CT_ITS ---
EXAMINATION: CTA brain carotid DATE: 06/22/2023 12:44 INDICATION: Left arm weakness. TECHNIQUE: Computed tomographic angiography (CTA) of the head was performed without and with 100 mL O mnipaque-350 intravenous contrast. CTA of the neck was performed with intravenous contrast. Automated exposure control and iterative reconstruction technique were employed. The dose-length product was 1 561.69 mGy-cm. Maximum intensity projection and volume rendered 3D-reconstructions were created by lópez cortez technologist on a separate workstation. COMPARISON: CTA head and neck 07/27/2019 FINDINGS: HEAD CTA: There is no intracranial hemorrhage, acute infarction, or abnormal intracranial mass lesion . The ventricles are normal in size. The orbits are normal. There is mild mucosal thickening in the p aranasal sinuses. There is a small right mastoid effusion. The vertebral arteries are codominant. The re is no significant stenosis of basilar artery or the posterior cerebral arteries. There is no signi ficant stenosis of intracranial internal carotid arteries or anterior or middle cerebral arteries. An terior communicating artery is normal. The posterior commuting arteries are normal. There is no aneur ysm. NECK CTA: There are no pathologically enlarged lymph nodes. There is no significant stenosis of the v ertebral arteries. There is mild plaque in the proximal internal carotid arteries. There is 0% stenos is of the proximal right internal carotid artery relative to normal distal artery lumen diameter (MAX CET criteria). There is 0% stenosis of the proximal left internal carotid artery relative to normal d istal artery lumen diameter. There is mild cervical spondylosis. IMPRESSION: 1. Normal brain. 2. No aneurysm or significant intracranial arterial stenosis. 3. 0% stenosis of the proximal internal carotid arteries relative to normal distal artery lumen diame ters (NASCET criteria). Reviewed, dictated and finalized at location A. IMPRESSION: 1. Normal brain. 2. No aneurysm or significant intracranial arterial stenosis. 3. 0% stenosis of the proximal internal carotid arteries relative to normal dis bon artery lumen diameters (NASCET criteria).
--- NOTE | ~2023-06-22 | US_ITS ---
EXAMINATION: US venous doppler [facility] DATE: 06/23/2023 08:12 INDICATION: Chest pain. TECHNIQUE: Grayscale ultrasound images without and with compression and Doppler ultrasound images of the bilateral lower extremity veins were obtained. COMPARISON: None. FINDINGS: The visualized portions of right common femoral vein, profunda (deep) femoral vein, femoral vein, pop liteal vein, peroneal veins, and posterior tibial veins are patent. There is thrombus in right greate r saphenous vein. The visualized portions of left common femoral vein, profunda femoral vein, femoral vein, popliteal v ein, peroneal veins, posterior tibial veins, and greater saphenous vein outflow are patent. IMPRESSION: 1. No deep venous thrombosis. 2. Superficial vein thrombosis involving right greater saphenous vein. Reviewed, dictated and finalized at location A.
--- NOTE | ~2023-06-22 | CT_ITS ---
EXAMINATION: CTA chest PE protocol DATE: 06/23/2023 08:57 INDICATION: Shortness of breath. Chest pain. TECHNIQUE: Computed tomography angiography (CTA) of the chest was performed with 100 mL Omnipaque-350 intravenous contrast timed to evaluate the pulmonary arteries. Coronal maximum intensity projection 3D-reconstructions were created by the technologist. Automated exposure control and iterative reconst ruction technique were employed. The dose-length product was 358.48 mGy-cm. COMPARISON: CT abdomen and pelvis 10/15/2018 FINDINGS: There are is mild atelectasis bilaterally. There are airspace and groundglass opacities in left lower lobe. There is a small left pleural effusion. The heart size is normal. No pericardial eff usion. There are acute pulmonary emboli in the lower lobes, left worse than right. There is mild thor acic spondylosis. IMPRESSION: 1. Acute pulmonary emboli in the lower lobes, left worse right. I called this result to Tess pizarro. 2. Airspace and groundglass opacities in left lower lobe, consistent with infarct. 3. Small left pleural effusion. Reviewed, dictated and finalized at location A. IMPRESSION: 1. Acute pulmonary emboli in the lower lobes, left worse right. I called this r esult to Tess Willis. 2. Airspace and groundglass opacities in left lower lobe, consistent with infar ct. 3. Small left pleural effusion.
--- NOTE | 2023-06-22 11:39 | ECG_ITS ---
Measurements Intervals [place] Rate: 110 P: 40 AL: 152 QRS: 62 QRSD: 94 T: 1 QT: 294 QTc: 398 Interpretive Statements SINUS TACHYCARDIA BORDERLINE ECG LOW-VOLTAGE QRS IN PRECORDIAL LEADS COMPARED TO ECG 07/27/2019 15:29:15 SINUS TACHYCARDIA NOW PRESENT Electronically Signed On 06-22-2023 14:51:02 CDT by Ovi Del Valle M.D.
[2023-06-22 11:57] LABS: Basophils Percent Auto 0.2 % (0.2-1.2); Eosinophils Absolute Auto 0.1 K/mm3 (0-0.3); Eosinophils Percent Auto 0.5 % (0-4.4); Hematocrit 43.8 % (37.0-47.0); Hemoglobin 14.4 g/dL (12.0-15.0); Immature Granulocyte Absolute 0.03 K/mm3 (0.00-0.031); Immature Granulocyte Percent A 0.3 % (0-0.5); Lymphocytes Absolute Auto 1.76 K/mm3 (0.9-3.2); Lymphocytes Percent Auto 17.1 % (18.3-44.2); Mean Corpuscular HGB Conc 32.9 g/dl (32-36); Mean Corpuscular Hemoglobin 29.3 pg (26-34); Mean Corpuscular Volume 89.2 fl (80-100); Mean Platelet Volume 8.9 fl (7.4-10.4); Monocytes Absolute Auto 0.6 K/mm3 (0.1-0.6); Monocytes Percent Auto 5.9 % (2.6-8.5); Neutrophils Absolute Auto 7.8 K/mm3 (1.3-6.7); Platelet Count Result 194 k/mm3 (150-375); Red Blood Count 4.91 M/mm3 (4.2-5.4); White Blood Count 10.3 K/mm3 (4.5-10.0)
[2023-06-22] MEDS: KETOROLAC 30 MG/ML VIAL (*BKC) IV PUSH (11:58)
[2023-06-22 12:10] LABS: Alanine Aminotransferase 19 U/L (6-35); Albumin Level 3.9 g/dL (3.5-5.1); Alkaline Phosphatase 102 U/L (38-126); Anion Gap 2 mmol/L (4-12); Aspartate Amino Transferase 21 U/L (14-36); Bilirubin,Total 1.3 mg/dL (0.2-1.3); Blood Urea Nitrogen 16 mg/dL (7-17); Calcium 9.3 mg/dL (8.4-10.2); Carbon Dioxide 29 mmol/L (22-30); Chloride 103 mmol/L (98-107); Estimated CRCL calculation 56 ml/min; Estimated Glomerular Filt Rate > 60; Glucose 144 mg/dL (65-110); Potassium 4.2 mmol/L (3.4-5.0); Sodium 134 mmol/L (137-145)
[2023-06-22 12:16] LABS: Prothrombin Time 13.2 Seconds (11.1-14.7)
[2023-06-22 12:17] LABS: Partial Thromboplastin Time 29.1 Seconds (22.3-36.8)
[2023-06-22 12:17] LABS: Influenza A QL RT-PCR Negative (Negative); Influenza B QL RT-PCR Negative (Negative); RSV RNA, RT-PCR Negative (Negative); SARS-CoV-2 RNA PCR Negative (Negative)
[2023-06-22 12:22] LABS: Troponin I < 0.012 ng/mL (0.000-0.034)
--- NOTE | 2023-06-22 14:49 | ED.SOB ---
HPI - SOB/Dyspnea General Chief Complaint: Shortness of Breath/Dyspnea Stated Complaint: dyspnea Time Seen by Provider: 06/22/23 11:20 History of Present Illness HPI Narrative: patient is a 57-year-old female who presents ER with 2 complaints. First complaint is some pleuritic left-sided chest pain that is worse with coughing and twisting and moving. No exertional discomfort. No fevers or chills or sweats. Cough is nonproductive. Cannot identify alleviating factors. Patient's other issue is that she woke up this morning at 8:00 a.m. and she cannot move her left arm. He reports his paralyzed. It lasted for about 2 hours before resolving on its own. Patient also has a resting tremor she reports that is been worsening over last [address] Robles for her seizure disorder. Related Data Home Medications Medication Instructions Recorded Confirmed citalopram 40 mg tablet 40 mg PO QPM 07/14/21 06/22/23 progesterone micronized 100 mg 100 mg PO QPM 07/14/21 06/22/23 capsule atorvastatin 20 mg tablet 20 mg PO QPM 06/22/23 06/22/23 estradiol 0.5 mg tablet 0.5 mg PO QPM 06/22/23 06/22/23 glimepiride 2 mg tablet 2 mg PO QPM 06/22/23 06/22/23 insulin glargine 100 unit/mL (3 26 unit subcut QHS 06/22/23 06/22/23 mL) subcutaneous pen (Lantus Solostar U-100 Insulin) levetiracetam 1,000 mg tablet 1,500 mg PO Q12H 06/22/23 06/22/23 levothyroxine 75 mcg tablet 75 mcg PO QAM 06/22/23 06/22/23 lisinopril 20 1 tablet PO QPM 06/22/23 06/22/23 mg-hydrochlorothiazide 25 mg tablet metformin 500 mg tablet,extended 1,000 mg PO QPM 06/22/23 06/22/23 release 24 hr tirzepatide 7.5 mg/0.5 mL 7.5 mg subcut WEEKLY 06/22/23 06/22/23 subcutaneous pen injector (Inocencia) Allergies Allergy/AdvReac Type Severity Reaction Status Date / Time penicillin V AdvReac Mild Nausea and Verified 06/22/23 11:08 Vomiting Review of Systems Review of Systems: All systems reviewed & are unremarkable except as noted in HPI and below Constitutional: Constitutional: Reports no additional constitutional complaints ENT: Reports system reviewed and no additional complaints, except as documented Cardiovascular: Cardiovascular: Reports chest pain, Denies rapid heart rate and Denies radiating jaw, neck or arm pain Respiratory: Respiratory: Denies chest congestion, Reports cough, Denies dyspnea and Denies wheezing Gastrointestinal: Gastrointestinal: Reports no additional gastrointestinal complaints Genitourinary: Genitourinary: Reports no additional female genitourinary complaints Neurologic: Denies syncope, Denies headache(s), Reports focal weakness and Denies numbness PMFSH Past Medical History Medical History Bipolar disorder Degenerative disc disease Depression with anxiety Fibromyalgia History of DVT of lower extremity Postoperatively after her hysterectomy Hypertension Hypothyroidism Kidney stones Lupus Obese Peripheral neuropathy Hands and feet Pulmonary emboli Postop hysterectomy Type 2 diabetes mellitus with diabetic neuropathy affecting both sides of body Surgical History Surgical History H/O tubal ligation H/O: hysterectomy vaginal Family History Family History Sibling Diabetes mellitus Mother Diabetes mellitus Depression Hypertension Father Acute myocardial infarction Depression Diabetes mellitus Heart disease Hypertension Grandparent Breast cancer Parkinson disease Grandparent Carcinoma of colon Social History Social History Social History: The patient stated that she drank and smoked when her boyfriend did but she no longer smokes or drinks. She attempted to get disability but was unable to get disability. She said she is on long-term disability from [facility] [employer] [facility]
--- NOTE | 2023-06-22 16:43 | ADMGEN ---
This patient, Ruchi Jones, was admitted to Medical Room 250-01. Patient/family oriented to hospital policies and general routines including ID bracelet, bed and alarms, visiting hours, pain management, procedures, bathroom and other care routines, personal items, smoking policy, room service/diet, and visiting hours. Information on how to activate the Rapid Response Team has been discussed. Patient/Family are encouraged to report perceived risks to care and to ask questions if they do not understand what they are told or what they should do.
[2023-06-22 17:11] LABS: Glucose Point of Care 88 mg/dl (65-105)
[2023-06-22] MEDS: HYDROcodone/acetaminophen (*CRX) 5-325 MG TABLET 1 TAB PO ×2 (17:41→21:39)
--- NOTE | 2023-06-22 18:47 | PM.IMHP ---
H&P: HPI History of Present Illness Date/Time: 06/22/23 18:47 Chief Complaint: SOB Narrative: patient is a 57-year-old female with a PMHx: of bipolar, degenerative disc disease, depression with anxiety, fibromyalgia, HTN, hypothyroidism type 2 diabetes with neuropathy history of pulmonary emboli Currently not on any anticoagulation, s/p: hysterectomy, who reported to the ER via POV with a complaint of ongoing left shoulder/chest pain that patient reports as pleuritic in nature, she reports her symptoms have since resolved, she states she was sleeping when she woke up and discovered she had difficulty moving her left arm, citing she was paralyzed, but states her symptoms resolved on its own after 2 hours. Patient endorses chest pain is worse when she coughs or with certain movements. Patient also states she has a history of tremors and is usually seen by neurologist, she states over the past 2 months her tremors have gotten worse. She denies any drug or alcohol use at this time. Patient states she does have a history of seizures and is compliant with her medication. ED Work-up reveals: Initial vitals: b/p 127/93, rr 20, pr 99, sp02 99% on RA T: 97.6, mild hyponatremia at 134, viral PCR is negative all other labs unremarkable, CTA brain carotid, normal brain, no aneurysm or significant intracranial arterial stenosis 0% stenosis of the proximal internal carotid artery. CXR normal chest, ED consult Neurology brain MRI scheduled for the a.m. Review of Systems Review of Systems: All systems reviewed & are unremarkable except as noted in HPI and below PMFSH Past Medical History Medical History Bipolar disorder Degenerative disc disease Depression with anxiety Fibromyalgia History of DVT of lower extremity Postoperatively after her hysterectomy Hypertension Hypothyroidism Kidney stones Lupus Obese Peripheral neuropathy Hands and feet Pulmonary emboli Postop hysterectomy Type 2 diabetes mellitus with diabetic neuropathy affecting both sides of body Surgical History Surgical History H/O tubal ligation H/O: hysterectomy vaginal Family History Family History Sibling Diabetes mellitus Mother Diabetes mellitus Depression Hypertension Father Acute myocardial infarction Depression Diabetes mellitus Heart disease Hypertension Grandparent Breast cancer Parkinson disease Grandparent Carcinoma of colon Social History Social History Social History: The patient stated that she drank and smoked when her boyfriend did but she no longer smokes or drinks. She attempted to get disability but was unable to get disability. She said she is on long-term disability from [facility] where she hurt her back. 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 She has 2 children a son and a daughter. She lives with her mother and her son. She does not have a power of business attorney desires to be a full code. She denies any marijuana or illicit drugs. Tobacco type: e-cigarettes/vaping Second hand tobacco smoke exposure: No Alcohol intake: never Substance use: current Substance use type: marijuana Do You Feel Safe in your Home?: Yes Lack of Transportation: No Lack of Food: Sometimes True Current Housing: I Have Housing Concerned About Future Housing: No Difficulty Paying Gas/Electric Bills: No Difficulty Paying for Meds: No Currently Unemployed: No Education: Trade/Vocational Certificate Difficulty w/ Childcare or Family Care: YES Living arrangements: with family Occupation/Education: other Additional occupation/education comments: disabilty Gender identity (if verbalized by the patient): Female Spiritual care concerns: No Agree to blood products: Yes Med
[2023-06-22 20:17] LABS: Glucose Point of Care 154 mg/dl (65-105)
[2023-06-22] MEDS: GABAPENTIN 300 MG CAPSULE 600 MG PO (21:31)
[2023-06-22] MEDS: levETIRAcetam 500 MG TABLET 1500 MG PO (21:31)
[2023-06-22] MEDS: ATORVASTATIN 20 MG TABLET PO (21:32)
[2023-06-22] MEDS: rOPINIRole HCL 0.25 MG TABLET PO (21:32)
[2023-06-22] MEDS: CITALOPRAM HYDROBROMIDE 20 MG TABLET 40 MG PO (21:32)
[2023-06-22] MEDS: lisinopriL 20 MG TABLET PO (21:32)
[2023-06-22] MEDS: BENZONATATE 100 MG CAPSULE PO (21:35)
[2023-06-22] MEDS: INSULIN GLARGINE (*BKC) 100 UNITS/ML 26 UNITS SUB-Q (21:36)
[2023-06-23] VITALS (7 sets, daily range): BP systolic 100–110; BP diastolic 59–74; PULSE 80–99; RESP 16–18; TEMP 36.4–36.6; O2SAT 94–95
--- NOTE | 2023-06-23 | ECHO_ITS ---
Patient Info Name: Ruchi Jones Age: 57 years : 1965 Gender: Female Ht: 63 in Wt: 164 lbs BSA: 1.84 m2 HR: 83 bpm BP: 102 / 63 mmHg Heart Rhythm: Sinus Rhythm Technical Quality: Fair Exam Date: 06/23/2023 9:38 AM Exam Location: Echo Lab Patient Status: Outpatient Admit Date: 06/22/2023 Staff Ordering Physician: Tess Willis APRN Cycling Instructor: uYe Newsome RDCS Attending Provider: Lucia Villalpando MD Referring Physician: Lazaro MATIAS; Exam Type: CA echo doppler w bubble study Study Info Indications - TIA Complete two-dimensional, color flow and Doppler transthoracic echocardiogram is performed with agitated saline. Contrast/Agitated Saline Contrast/Ag. Saline: Agitated Saline Amount: 20.00 ml Existing IV Access: Yes IV Access Condition: patent with no signs of infiltration Summary 1. Left ventricular chamber dimension is normal. 2. Left ventricular systolic function is normal, estimated at 65-70%. 3. The left ventricular diastolic function is grade I diastolic dysfunction. 4. Right ventricular systolic function is normal. 5. Intact interatrial septum visualized by color flow and agitated saline imaging. Negative bubble study. 6. No significant valvular disease. Left Ventricle Left ventricular chamber dimension is normal. Left ventricular systolic function is normal, estimated at 65-70%. There is no increased left ventricular wall thickness. The left ventricular diastolic function is grade I diastolic dysfunction. Right Ventricle Right ventricular chamber dimension is normal. Right ventricular systolic function is normal. Left Atria Left atrial chamber dimension is normal. Right Atria Right atrial chamber dimension is normal. Atrial Septum Intact interatrial septum visualized by color flow and agitated saline imaging. Negative bubble study. Aortic Valve The aortic valve is trileaflet. There is no aortic valve stenosis. There is no aortic valve regurgitation. There is mild aortic valve calcification. Pulmonic Valve The pulmonic valve is not well visualized. Mitral Valve There is trace mitral valve regurgitation. Tricuspid Valve There is trace tricuspid valve regurgitation. Pericardium/Pleural There is no pericardial effusion. Inferior Vena Cava Normal inferior vena cava with >50% collapse upon inspiration consistent with normal right atrial pressure, 3 mmHg. Aorta The aortic root size at the sinus of Valsalva is normal. Left Ventricular Outflow Tract Name Value Normal LVOT 2D LVOT Diameter 2.0 cm LVOT Doppler LVOT Peak Gradient 4 mmHg LVOT Mean Gradient 2 mmHg LVOT VTI 20 cm LVOT VTI/AV VTI Ratio 0.7 LVOT Stroke Volume 60 ml LVOT CO 4.7 l/min LVOT CI 2.5 l/min/m2 Pulmonic Valve Name Value Normal R
[2023-06-23 05:22] LABS: Basophils Percent Auto 0.6 % (0.2-1.2); Eosinophils Absolute Auto 0.1 K/mm3 (0-0.3); Eosinophils Percent Auto 0.7 % (0-4.4); Hematocrit 41.2 % (37.0-47.0); Hemoglobin 13.3 g/dL (12.0-15.0); Immature Granulocyte Absolute 0.02 K/mm3 (0.00-0.031); Immature Granulocyte Percent A 0.3 % (0-0.5); Lymphocytes Absolute Auto 1.68 K/mm3 (0.9-3.2); Lymphocytes Percent Auto 24.1 % (18.3-44.2); Mean Corpuscular HGB Conc 32.3 g/dl (32-36); Mean Corpuscular Hemoglobin 29.2 pg (26-34); Mean Corpuscular Volume 90.4 fl (80-100); Mean Platelet Volume 9.1 fl (7.4-10.4); Monocytes Absolute Auto 0.5 K/mm3 (0.1-0.6); Monocytes Percent Auto 6.5 % (2.6-8.5); Neutrophils Absolute Auto 4.7 K/mm3 (1.3-6.7); Neutrophils Percent Auto 67.8 % (45.5-73.1); Platelet Count Result 208 k/mm3 (150-375); Red Blood Count 4.56 M/mm3 (4.2-5.4); Red Cell Distribution Width 11.9 % (11.5-14.5)
[2023-06-23 05:38] LABS: Alanine Aminotransferase 19 U/L (6-35); Albumin Level 3.7 g/dL (3.5-5.1); Alkaline Phosphatase 93 U/L (38-126); Anion Gap 5 mmol/L (4-12); Aspartate Amino Transferase 22 U/L (14-36); Bilirubin,Total 1.1 mg/dL (0.2-1.3); Blood Urea Nitrogen 25 mg/dL (7-17); Calcium 9.2 mg/dL (8.4-10.2); Carbon Dioxide 26 mmol/L (22-30); Chloride 104 mmol/L (98-107); Estimated CRCL calculation 57 ml/min; Estimated Glomerular Filt Rate 58; Glucose 146 mg/dL (65-110); Sodium 135 mmol/L (137-145)
[2023-06-23] MEDS: LEVOTHYROXINE SODIUM 75 MCG TABLET PO (06:04)
[2023-06-23] MEDS: HYDROcodone/acetaminophen (*CRX) 5-325 MG TABLET 1 TAB PO ×2 (06:07→20:05)
--- NOTE | 2023-06-23 08:16 | P.PNIM_ITS ---
Progress Note: A&P Assessment and Plan (1) TIA (transient ischemic attack): Code(s): G45.9 - Transient cerebral ischemic attack, unspecified Status: Acute (2) Type 2 diabetes mellitus with hyperglycemia: Code(s): E11.65 - Type 2 diabetes mellitus with hyperglycemia Status: Acute (3) Restless leg syndrome: Code(s): G25.81 - Restless legs syndrome Status: Acute (4) Seizure disorder: Code(s): G40.909 - Epilepsy, unspecified, not intractable, without status epilepticus Status: Acute (5) Hypertension: Qualifiers: Hypertension type: unspecified Qualified Code(s): I10 - Essential (primary) hypertension Code(s): I10 - Essential (primary) hypertension Status: Chronic (6) Hyperlipidemia associated with type 2 diabetes mellitus: Code(s): E11.69 - Type 2 diabetes mellitus with other specified complication; E78.5 - Hyperlipidemia, unspecified Status: Acute (7) Chest pain: Code(s): R07.9 - Chest pain, unspecified Status: Acute (8) Pulmonary emboli: Code(s): I26.99 - Other pulmonary embolism without acute cor pulmonale Status: Acute Plan TIA * Neuro check q.4 hour for the 1st 24 hours. * laboratory monitor and telemetry continuously. * Blood pressure management. * Keep the systolic blood pressure more than 200 or diastolic more than 110. Then lower blood pressure by 15% within the 1st 24 hours. * MRI of the brain without contrast pending * CT no acute issues * Check for LDL and hemoglobin A1c. * On statin 20mg will increase pending lipid panel * ECHO pending * consult to neurology * resumed ASA Chest pain * Atypical chest pain worse with coughing * troponin negative * EKG without ischemic Sinus tachycardia * Will get CTA to R/O PE (PT has hx of PE/DVT not on AC) * Echo * continuous cardiac monitoring Pulmonary embolism * CTA shows bilateral lower lobes * HX of PE/DVTS was on coumadin * started on eliquis 10mg BID x 7 days/5mg BID * Patient will need remain on AC lifelong * CC consulted for PA * on RA at this time * plan for Event monitor at discharge * Recommended referral to area director of home health sales O/P Diabetes * Accu-Cheks a.c. HS * sliding scale insulin * hold oral diabetic medications * resume patient's home long-acting * Hemoglobin A1c goal less than 7 pending * lipid panel pending * Diabetic diet * consult to dietitian * encourage lifestyle modifications and weight loss * Optimize Garth inhibitors and statins. * Watch for hypoglycemia/hypoglycemic protocol ordered HX HLD: resumed atorvastatin/lipid panel pending HX HTN: stable resumed home lisinopril/HTZ HX hypothyroidism: Resumed levothyroxine/TSH pending HX restless leg: resumed requip HX of neuropathy: resumed gabapentin HX of Seizures: resumed Keppra/Neurology consulted Code status: Full code per patient DVT prophylaxis: Eliquis Stress ulcer prophylaxis: Protonix 40 daily PT/OT notes: Ambulatory Disposition: Patient admitted for possible TIA no current deficits however had reports of atypical chest pain CTA shows bilateral PE's, neurology consulted and MRI no acute findings. CC consulted for Toro RONDON and will need event monitor at discharge. Patient is ambulatory and will likely return home when medically clear. Time Spent With Patient Time with patient: 15 - 25 minutes Subjective Date/time seen: 06/23/23 08:16 Interval history:
--- NOTE | 2023-06-23 08:16 | PM.IMPN ---
Progress Note: A&P Assessment and Plan (1) TIA (transient ischemic attack): Code(s): G45.9 - Transient cerebral ischemic attack, unspecified Status: Acute (2) Type 2 diabetes mellitus with hyperglycemia: Code(s): E11.65 - Type 2 diabetes mellitus with hyperglycemia Status: Acute (3) Restless leg syndrome: Code(s): G25.81 - Restless legs syndrome Status: Acute (4) Seizure disorder: Code(s): G40.909 - Epilepsy, unspecified, not intractable, without status epilepticus Status: Acute (5) Hypertension: Qualifiers: Hypertension type: unspecified Qualified Code(s): I10 - Essential (primary) hypertension Code(s): I10 - Essential (primary) hypertension Status: Chronic (6) Hyperlipidemia associated with type 2 diabetes mellitus: Code(s): E11.69 - Type 2 diabetes mellitus with other specified complication; E78.5 - Hyperlipidemia, unspecified Status: Acute (7) Chest pain: Code(s): R07.9 - Chest pain, unspecified Status: Acute (8) Pulmonary emboli: Code(s): I26.99 - Other pulmonary embolism without acute cor pulmonale Status: Acute Plan TIA Neuro check q.4 hour for the 1st 24 hours. nurse monitoring and telemetry continuously. Blood pressure management. Keep the systolic blood pressure more than 200 or diastolic more than 110. Then lower blood pressure by 15% within the 1st 24 hours. MRI of the brain without contrast pending CT no acute issues Check for LDL and hemoglobin A1c. On statin 20mg will increase pending lipid panel ECHO pending consult to neurology resumed ASA Chest pain Atypical chest pain worse with coughing troponin negative EKG without ischemic Sinus tachycardia Will get CTA to R/O PE (PT has hx of PE/DVT not on AC) Echo continuous cardiac monitoring Pulmonary embolism CTA shows bilateral lower lobes HX of PE/DVTS was on coumadin started on eliquis 10mg BID x 7 days/5mg BID Patient will need remain on AC lifelong CC consulted for PA on RA at this time plan for Event monitor at discharge Recommended referral to truck hopper O/P Diabetes Accu-Cheks a.c. HS sliding scale insulin hold oral diabetic medications resume patient's home long-acting Hemoglobin A1c goal less than 7 pending lipid panel pending Diabetic diet consult to dietitian encourage lifestyle modifications and weight loss Optimize Garth inhibitors and statins. Watch for hypoglycemia/hypoglycemic protocol ordered HX HLD: resumed atorvastatin/lipid panel pending HX HTN: stable resumed home lisinopril/HTZ HX hypothyroidism: Resumed levothyroxine/TSH pending HX restless leg: resumed requip HX of neuropathy: resumed gabapentin HX of Seizures: resumed Keppra/Neurology consulted Code status: Full code per patient DVT prophylaxis: Eliquis Stress ulcer prophylaxis: Protonix 40 daily PT/OT notes: Ambulatory Disposition: Patient admitted for possible TIA no current deficits however had reports of atypical chest pain CTA shows bilateral PE's, neurology consulted and MRI no acute findings. CC consulted for Toro RONDON and will need event monitor at discharge. Patient is ambulatory and will likely return home when medically clear. Time Spent With Patient Time with patient: 15 - 25 minutes Subjective Date/time seen: 06/23/23 08:16 Interval history: Admission: Medical Record Patient is a 57-year-old female with a PMHx: of bipolar, degenerative disc disease, depression with anxiety, fibromyalgia, HTN, hypothyroidism type 2 diabetes with neuropathy history of pulmonary emboli? Currently not on any anticoagulation, s/p: hysterectomy, who reported to the ER via POV with a complaint of ongoing? left? shoulder/chest pain that patient reports as pleuritic in nature, she reports her symptoms have since resolved, she states she was sleeping when she woke up and discov
[2023-06-23] MEDS: ENOXAPARIN 40 MG/0.4 ML SYRINGE SUB-Q (08:34)
[2023-06-23] MEDS: levETIRAcetam 500 MG TABLET 1500 MG PO ×2 (08:35→20:01)
[2023-06-23] MEDS: ARIPiprazole 5 MG TABLET PO (08:35)
[2023-06-23] MEDS: BENZONATATE 100 MG CAPSULE PO ×3 (08:35→17:26)
[2023-06-23 08:36] LABS: Cholesterol 217 mg/dL (0-200); HDL Direct 46 mg/dL; Triglycerides 87 mg/dL (<150)
[2023-06-23] MEDS: GABAPENTIN 300 MG CAPSULE 600 MG PO ×2 (08:36→17:24)
[2023-06-23 08:38] LABS: Glucose Point of Care 121 mg/dl (65-105)
[2023-06-23] MEDS: rOPINIRole HCL 0.25 MG TABLET PO ×2 (08:38→17:24)
[2023-06-23] MEDS: PANTOPRAZOLE 40 MG TABLET PO (08:41)
[2023-06-23 08:46] LABS: LDL Cholesterol Direct 128 mg/dL
[2023-06-23 12:15] LABS: Glucose Point of Care 132 mg/dl (65-105)
--- NOTE | 2023-06-23 13:50 | PCCCNOTE ---
On 06/23/23, the student, Carla Novoa, provided care and completed [facility] documentation on this patient. I have reviewed the student's documentation and agree with the findings.
[2023-06-23 17:04] LABS: Glucose Point of Care 136 mg/dl (65-105)
[2023-06-23] MEDS: CITALOPRAM HYDROBROMIDE 20 MG TABLET 40 MG PO (17:24)
[2023-06-23] MEDS: ATORVASTATIN 20 MG TABLET PO (17:24)
[2023-06-23] MEDS: lisinopriL 20 MG TABLET PO (17:25)
[2023-06-23] MEDS: hydroCHLOROthiazide 25 MG TABLET PO (17:25)
--- NOTE | 2023-06-23 17:51 | WPDNEURCNPN ---
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 (2) Type 2 diabetes mellitus with hyperglycemia: Code(s): E11.65 - Type 2 diabetes mellitus with hyperglycemia Status: Acute (3) Seizure disorder: Code(s): G40.909 - Epilepsy, unspecified, not intractable, without status epilepticus Status: Acute Assessment and Plan: Controlled with Keppra 15 mg twice a day (4) Drug-induced tremor: Code(s): G25.1 - Drug-induced tremor Status: Acute Assessment and Plan: it was noted that she has tremor of both lower limbs more than upper limbs. No tremor of the head and neck were noted. She has history of bipolar disorder and she is on Abilify and besides that she is on numerous other medications. I suspect this to be a drug-induced tremor. She has a family history of Parkinson's disease in care of her mother. I do not feel that she has features of Parkinson's disease at this time. His also somewhat unusual see manifestation predominant in the lower limbs than upper limbs. At some point if this symptoms continue further clinical evaluation at Neurology office is recommended. Plan 1. Continue the Keppra as before 2. Follow-up with regard to tremor in the office 3. Continue treatment for pulmonary embolus and a tendency to have recurrent venous thrombosis with anticoagulation as per hospitalist team 4. Follow-up with Dr. Robles as an outpatient as previously planned. I do not see any evidence for stroke. She had abnormal feeling on the left side of the chest and she thought that the whole left side was not feeling okay. I cannot rule out possibly having had transient ischemic attack but I also wonder about the subjectivity in the patient having PE pleuritic symptoms in the left chest wall. Given the risk factors should be on antiplatelets and statins depending upon the need. Consult date: 06/23/23 Time Seen: 15:30 Reason for consult: left arm weakness HPI: Ruchi Jones is a 57 year old female history of seizure disorder and tremor and bipolar disorder presented to the hospital with the numbness or weakness of the left upper limb. she also complained of discomfort in the left chest wall and shortness of breath and was found to have pulmonary embolism for which she is being treated with anti coagulation. She has history of deep vein thrombosis of the legs for long time 100 off and she has been on anticoagulants but she was not taking does prior to admission. I noted that she has been advised that she may require long-term anticoagulation. History of seizures since July of 2019. No prior history of stroke. There is also history of diabetes mellitus and hypertension. CT scan of brain and CT angiogram of the head and neck and MRI of the brain performed did not show any significant abnormalities. Findings will be discussed below. At this time the patient denies any significant difficulty however she feels as a whole the left-sided not feel quite as the right and the right side. For most of the symptoms are in the chest Wall. With regard to the seizures he follows up with Dr. Robles and has not had any seizures lately. She is currently on Keppra 1500 mg twice a day of this has been effective and well tolerated. She has developed tremor of the legs for the last Few months. It was noted that she also sees a psychiatrist and has been on Abilify for about a year or so. Review of Systems Review of Systems: All systems reviewed & are unremarkable except as noted in HPI and below [facility] Past Medical History Medical History (Updated 06/23/23 @ 18:02 by Antonio Chan MD) Bipolar disorder
[2023-06-23] MEDS: APIXABAN 5 MG TABLET 10 MG PO (20:01)
[2023-06-23] MEDS: INSULIN GLARGINE (*BKC) 100 UNITS/ML 26 UNITS SUB-Q (20:07)
[2023-06-23 22:57] LABS: Glucose Point of Care 126 mg/dl (65-105)
[2023-06-23 23:29] LABS: Hemoglobin A1C 6.6 % (<5.7)
[2023-06-24] VITALS: PULSE 83
[2023-06-24 04:00] VITALS: PULSE 83
[2023-06-24] MEDS: LEVOTHYROXINE SODIUM 75 MCG TABLET PO (05:34)
[2023-06-24 05:56] VITALS: BP 102/64; PULSE 79; RESP 16; TEMP 36.5; O2SAT 93
[2023-06-24 06:20] LABS: Basophils Percent Auto 0.4 % (0.2-1.2); Eosinophils Absolute Auto 0.1 K/mm3 (0-0.3); Eosinophils Percent Auto 1.3 % (0-4.4); Hematocrit 39.6 % (37.0-47.0); Hemoglobin 12.9 g/dL (12.0-15.0); Immature Granulocyte Absolute 0.04 K/mm3 (0.00-0.031); Immature Granulocyte Percent A 0.5 % (0-0.5); Lymphocytes Absolute Auto 2.35 K/mm3 (0.9-3.2); Lymphocytes Percent Auto 28.5 % (18.3-44.2); Mean Corpuscular HGB Conc 32.6 g/dl (32-36); Mean Corpuscular Hemoglobin 29.4 pg (26-34); Mean Corpuscular Volume 90.2 fl (80-100); Mean Platelet Volume 9.3 fl (7.4-10.4); Monocytes Absolute Auto 0.7 K/mm3 (0.1-0.6); Monocytes Percent Auto 8.2 % (2.6-8.5); Neutrophils Percent Auto 61.1 % (45.5-73.1); Platelet Count Result 219 k/mm3 (150-375); Red Blood Count 4.39 M/mm3 (4.2-5.4); Red Cell Distribution Width 12.1 % (11.5-14.5); White Blood Count 8.3 K/mm3 (4.5-10.0)
[2023-06-24 06:36] LABS: Alanine Aminotransferase 15 U/L (6-35); Albumin Level 3.7 g/dL (3.5-5.1); Alkaline Phosphatase 89 U/L (38-126); Anion Gap 4 mmol/L (4-12); Aspartate Amino Transferase 19 U/L (14-36); Blood Urea Nitrogen 22 mg/dL (7-17); Calcium 9.3 mg/dL (8.4-10.2); Carbon Dioxide 27 mmol/L (22-30); Chloride 101 mmol/L (98-107); Estimated CRCL calculation 52 ml/min; Estimated Glomerular Filt Rate 52; Glucose 113 mg/dL (65-110); Potassium 3.8 mmol/L (3.4-5.0); Sodium 132 mmol/L (137-145)
[2023-06-24 08:00] VITALS: PULSE 83
--- NOTE | 2023-06-24 08:28 | P.DS_ITS ---
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 Code(s): E11.65 - Type 2 diabetes mellitus with hyperglycemia Status: Acute (3) Restless leg syndrome: Code(s): G25.81 - Restless legs syndrome Status: Acute (4) Seizure disorder: Code(s): G40.909 - Epilepsy, unspecified, not intractable, without status epilepticus Status: Acute (5) Hypertension: Qualifiers: Hypertension type: unspecified Qualified Code(s): I10 - Essential (primary) hypertension Code(s): I10 - Essential (primary) hypertension Status: Chronic (6) Hyperlipidemia associated with type 2 diabetes mellitus: Code(s): E11.69 - Type 2 diabetes mellitus with other specified complication; E78.5 - Hyperlipidemia, unspecified Status: Acute (7) Chest pain: Qualifiers: Chest pain type: chest pain on breathing Qualified Code(s): R07.1 - Chest pain on breathing Code(s): R07.9 - Chest pain, unspecified Status: Acute (8) Pulmonary emboli: Qualifiers: Chronicity: acute Acute cor pulmonale presence: without acute cor pulmonale Code(s): I26.99 - Other pulmonary embolism without acute cor pulmonale Status: Acute Plan TIA * Neuro check q.4 hour for the 1st 24 hours. 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 * Blood pressure management. * Keep the systolic blood pressure more than 200 or diastolic more than 110. Then lower blood pressure by 15% within the 1st 24 hours. * MRI of the brain without contrast pending * CT no acute issues * Check for LDL and hemoglobin A1c. * On statin 20mg will increase pending lipid panel * ECHO pending * consult to neurology * resumed ASA Chest pain * Atypical chest pain worse with coughing * troponin negative * EKG without ischemic Sinus tachycardia * Will get CTA to R/O PE (PT has hx of PE/DVT not on AC) * Echo * continuous cardiac monitoring Pulmonary embolism * CTA shows bilateral lower lobes * HX of PE/DVTS was on coumadin * started on eliquis 10mg BID x 7 days/5mg BID * Patient will need remain on AC lifelong * CC consulted for PA * on RA at this time * plan for Event monitor at discharge * Recommended referral to drawbench operator helper O/P Diabetes * Accu-Cheks a.c. HS * sliding scale insulin * hold oral diabetic medications * resume patient's home long-acting * Hemoglobin A1c goal less than 7 pending * lipid panel pending * Diabetic diet * consult to dietitian * encourage lifestyle modifications and weight loss * Optimize Garth inhibitors and statins. * Watch for hypoglycemia/hypoglycemic protocol ordered HX HLD: resumed atorvastatin/lipid panel pending HX HTN: stable resumed home lisinopril/HTZ HX hypothyroidism: Resumed levothyroxine/TSH pending HX restless leg: resumed requip HX of neuropathy: resumed gabapentin HX of Seizures: resumed Keppra/Neurology consulted Disposition: Patient discharged home ambulatory on own, new prescription of eliquis PA completed.
--- NOTE | 2023-06-24 08:28 | PM.DS ---
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 insulin Code(s): E11.65 - Type 2 diabetes mellitus with hyperglycemia Status: Acute (3) Restless leg syndrome: Code(s): G25.81 - Restless legs syndrome Status: Acute (4) Seizure disorder: Code(s): G40.909 - Epilepsy, unspecified, not intractable, without status epilepticus Status: Acute (5) Hypertension: Qualifiers: Hypertension type: unspecified Qualified Code(s): I10 - Essential (primary) hypertension Code(s): I10 - Essential (primary) hypertension Status: Chronic (6) Hyperlipidemia associated with type 2 diabetes mellitus: Code(s): E11.69 - Type 2 diabetes mellitus with other specified complication; E78.5 - Hyperlipidemia, unspecified Status: Acute (7) Chest pain: Qualifiers: Chest pain type: chest pain on breathing Qualified Code(s): R07.1 - Chest pain on breathing Code(s): R07.9 - Chest pain, unspecified Status: Acute (8) Pulmonary emboli: Qualifiers: Chronicity: acute Acute cor pulmonale presence: without acute cor pulmonale Code(s): I26.99 - Other pulmonary embolism without acute cor pulmonale Status: Acute Plan TIA Neuro check q.4 hour for the 1st 24 hours. property assessment monitor and telemetry continuously. Blood pressure management. Keep the systolic blood pressure more than 200 or diastolic more than 110. Then lower blood pressure by 15% within the 1st 24 hours. MRI of the brain without contrast pending CT no acute issues Check for LDL and hemoglobin A1c. On statin 20mg will increase pending lipid panel ECHO pending consult to neurology resumed ASA Chest pain Atypical chest pain worse with coughing troponin negative EKG without ischemic Sinus tachycardia Will get CTA to R/O PE (PT has hx of PE/DVT not on AC) Echo continuous cardiac monitoring Pulmonary embolism CTA shows bilateral lower lobes HX of PE/DVTS was on coumadin started on eliquis 10mg BID x 7 days/5mg BID Patient will need remain on AC lifelong CC consulted for PA on RA at this time plan for Event monitor at discharge Recommended referral to consulting sme O/P Diabetes Accu-Cheks a.c. HS sliding scale insulin hold oral diabetic medications resume patient's home long-acting Hemoglobin A1c goal less than 7 pending lipid panel pending Diabetic diet consult to dietitian encourage lifestyle modifications and weight loss Optimize Garth inhibitors and statins. Watch for hypoglycemia/hypoglycemic protocol ordered HX HLD: resumed atorvastatin/lipid panel pending HX HTN: stable resumed home lisinopril/HTZ HX hypothyroidism: Resumed levothyroxine/TSH pending HX restless leg: resumed requip HX of neuropathy: resumed gabapentin HX of Seizures: resumed Keppra/Neurology consulted Disposition: Patient discharged home ambulatory on own, new prescription of eliquis PA completed. DS: Summary Hospital Course Reason for hospitalization: TIA/Pulmonary Embolism Hospital Course: Admission: Medical Record Patient is a 57-year-old female with a PMHx: of bipolar, degenerative disc disease, depression with anxiety, fibromyalgia, HTN, hypothyroidism type 2 diabetes with neuropathy history of pulmonary emboli? Currently not on any anticoagulation, s/p: hysterectomy, who reported to the ER via POV with a complaint of ongoing? left? shoulder/chest pain that patient
[2023-06-24 08:32] LABS: Glucose Point of Care 107 mg/dl (65-105)
[2023-06-24] MEDS: rOPINIRole HCL 0.25 MG TABLET PO (08:49)
[2023-06-24] MEDS: levETIRAcetam 500 MG TABLET 1500 MG PO (08:49)
[2023-06-24] MEDS: ARIPiprazole 5 MG TABLET PO (08:50)
[2023-06-24] MEDS: APIXABAN 5 MG TABLET 10 MG PO (08:50)
[2023-06-24] MEDS: BENZONATATE 100 MG CAPSULE PO (08:50)
[2023-06-24] MEDS: PANTOPRAZOLE 40 MG TABLET PO (08:50)
[2023-06-24] MEDS: GABAPENTIN 300 MG CAPSULE 600 MG PO (08:50)
[2023-06-24] MEDS: INSULIN ASPART (*BKC) 100 UNITS/ML 10 UNITS SUB-Q (08:51)
--- NOTE | 2023-06-24 10:36 | PC.NURSE ---
On 06/24/23, the student, [Jarrod Donis], provided care and completed [facility] documentation on this patient. I have reviewed the student's documentation and agree with the findings.
== END 2023-06-24 10:40 | disposition home or self-care (01) ==
LOC: ANHED 11:41 → ANH2MED 16:15
PROVIDERS: Nurse Practitioner; Nurse Practitioner Family; Admitting Provider Family Medicine; Emergency Provider Emergency Medicine; PCP Family Medicine Adolescent Medicine; Visit Provider Hospitalist
DX: G45.9 Transient cerebral ischemic attack, unspecified (principal); I26.99 Other pulmonary embolism without acute cor pulmonale; I82.811 Embolism and thrombosis of superficial veins of right lower extremity; E11.42 Type 2 diabetes mellitus with diabetic polyneuropathy; E11.65 Type 2 diabetes mellitus with hyperglycemia; G25.1 Drug-induced tremor; G25.81 Restless legs syndrome; G40.909 Epilepsy, unspecified, not intractable, without status epilepticus; I10 Essential (primary) hypertension; E03.9 Hypothyroidism, unspecified; F31.9 Bipolar disorder, unspecified; F41.9 Anxiety disorder, unspecified; M79.7 Fibromyalgia; M32.9 Systemic lupus erythematosus, unspecified; Z20.822 Contact with and (suspected) exposure to COVID-19; Z86.711 Personal history of pulmonary embolism; Z86.718 Personal history of other venous thrombosis and embolism; F12.90 Cannabis use, unspecified, uncomplicated; Z79.84 Long term (current) use of oral hypoglycemic drugs; Z79.4 Long term (current) use of insulin; Z79.85 Long-term (current) use of injectable non-insulin antidiabetic drugs
CPT/HCPCS: 36415; 70496; 70498; 70553; 71046; 71275; 80053; 80061; 82948; 83036; 84443; 84484; 85025; 85610; 85730; 87637; 93005; 93306; 93970; 96372; 96374; 96375; 99285; A9270; A9577; G0378; G0379; J1650; J1815; J1885; Q9967

== ENCOUNTER 2023-07-12 13:42 | Outpatient (CLI) | payer OTHER, SELFPAY ==
--- NOTE | 2023-08-10 12:14 | WPDHOLTEREM ---
Holter/Event Monitor Holter/Event Monitor Date of procedure: 08/03/23 Holter/Event Procedure: 48 Hr Holter Monitor Indications: Pulmonary embolism Conclusion: 1. 48 hour holter monitor on 08/03/23. 2. Underlying rhythm is sinus rhythm. HR range 52-108 bpm; average HR 71 bpm. 3. There are 72 premature supraventricular complexes. No supraventricular tachycardia. 4. No premature ventricular complexes. No ventricular tachycardia. 5. No sinoatrial or atrioventricular blocks. No significant pauses greater than 2 seconds. 6. No symptoms available for correlation.
== END 2023-07-12 13:43 | disposition home or self-care (01) ==
LOC: ANHCARD 13:43
PROVIDERS: PCP Family Medicine Adolescent Medicine; Visit Provider Nurse Practitioner Family
DX: I26.99 Other pulmonary embolism without acute cor pulmonale (principal); G45.9 Transient cerebral ischemic attack, unspecified
CPT/HCPCS: 93225; 93226

== ENCOUNTER 2023-10-11 08:50 | Outpatient (CLI) | payer OTHER, SELFPAY ==
[2023-10-11 09:28] LABS: Alanine Aminotransferase 17 U/L (6-35); Albumin Level 4.1 g/dL (3.5-5.1); Alkaline Phosphatase 85 U/L (38-126); Anion Gap 4 mmol/L (4-12); Aspartate Amino Transferase 23 U/L (14-36); Bilirubin,Total 0.9 mg/dL (0.2-1.3); Blood Urea Nitrogen 19 mg/dL (7-17); Carbon Dioxide 34 mmol/L (22-30); Chloride 101 mmol/L (98-107); Cholesterol 202 mg/dL (0-200); Estimated Glomerular Filt Rate 47; Glucose 72 mg/dL (65-110); HDL Direct 53 mg/dL; Potassium 4.2 mmol/L (3.4-5.0); Sodium 139 mmol/L (137-145); Triglycerides 86 mg/dL (<150)
[2023-10-11 09:41] LABS: LDL Cholesterol Direct 108 mg/dL
[2023-10-11 09:44] LABS: Creatinine Urine 151.9 mg/dL; Hemoglobin A1C 6.1 % (<5.7)
[2023-10-11 09:46] LABS: MALB Creatinine Ratio 4.3 mg/g (0-30); Microalbumin Urine Random 6.6 mg/L (0-16.7)
== END 2023-10-11 08:51 | disposition home or self-care (01) ==
PROVIDERS: PCP Family Medicine Adolescent Medicine; Visit Provider Nurse Practitioner Family
DX: E03.9 Hypothyroidism, unspecified (principal); E11.42 Type 2 diabetes mellitus with diabetic polyneuropathy; E11.65 Type 2 diabetes mellitus with hyperglycemia; E11.69 Type 2 diabetes mellitus with other specified complication; E78.5 Hyperlipidemia, unspecified; G45.9 Transient cerebral ischemic attack, unspecified
CPT/HCPCS: 36415; 80053; 80061; 82043; 83036; 84443

== ENCOUNTER 2023-12-21 15:44 | Emergency (ER) | payer OTHER, SELFPAY ==
--- NOTE | ~2023-12-21 | XR_ITS ---
EXAMINATION: XR wrist LT min 3V DATE: 12/21/2023 16:02 INDICATION: Left wrist pain. Fall. TECHNIQUE: 4 views of left wrist were obtained. COMPARISON: None. FINDINGS: There is a comminuted extra-articular fracture of distal radius. The main distal fracture f ragment demonstrates impaction, 2 mm dorsal displacement, and dorsal angulation. There is 13 degrees dorsal tilt of the distal articular surface. Ulnar styloid is intact. There is mild osteoarthritis of first carpometacarpal joint. IMPRESSION: 1. Comminuted fracture of distal radius. Reviewed, dictated and finalized at location A.
[2023-12-21 15:52] VITALS: BP 136/97; PULSE 82; RESP 16; TEMP 36.1; O2SAT 98
--- NOTE | 2023-12-21 16:31 | ED.UPPEXIN ---
HPI - Extremity Injury (Upper) General Chief Complaint: Extremity Injury, Upper Stated Complaint: INJURED L WRIST Time Seen by Provider: 12/21/23 16:01 Source: patient and RN notes reviewed Mode of arrival: ambulatory Limitations: no limitations History of Present Illness HPI narrative: Patient presents today complaining of a left wrist injury. Approximately 1 hour prior to arrival patient fell off a chair at home while changing a light bulb on to her left wrist. She currently rates her pain 10/10. Reports some tingling in her 4th finger it is now bruised. Currently on Eliquis for history of pulmonary embolism. Related Data Allergies Allergy/AdvReac Type Severity Reaction Status Date / Time penicillin V AdvReac Mild Nausea and Verified 12/21/23 15:58 Vomiting Review of Systems Review of Systems: CONSTITUTIONAL: Denies body aches, fever, chills, or sweats. EYES: Denies visual changes, redness, or discharge. ENT: Denies rhinorrhea, congestion, sore throat, or otalgia. CARDIOVASCULAR: Denies chest pain, palpitations, or edema. RESPIRATORY: Denies cough or dyspnea. GASTROINTESTINAL: Denies abdominal pain, nausea, vomiting, or diarrhea. GENITOURINARY: Denies dysuria or hematuria. SKIN: Denies rash, itching, or wounds. MUSCULOSKELETAL: Denies back pain, or myalgia.+ left wrist injury NEUROLOGIC: Denies headache, numbness, or weakness.+ tingling to 4th finger PSYCH: Denies depression or anxiety. [facility] Past Medical History Medical History Bipolar disorder Degenerative disc disease Depression with anxiety Drug-induced tremor Fibromyalgia History of DVT of lower extremity Postoperatively after her hysterectomy Hypertension Hypothyroidism Kidney stones Lupus Obese Peripheral neuropathy Hands and feet Pulmonary emboli Postop hysterectomy Type 2 diabetes mellitus with diabetic neuropathy affecting both sides of body Surgical History Surgical History H/O tubal ligation H/O: hysterectomy vaginal Family History Family History Sibling Diabetes mellitus Mother Diabetes mellitus Depression Hypertension Father Acute myocardial infarction Depression Diabetes mellitus Heart disease Hypertension Grandparent Breast cancer Parkinson disease Grandparent Carcinoma of colon Social History Social History Social History: The patient stated that she drank and smoked when her boyfriend did but she no longer smokes or drinks. She attempted to get disability but was unable to get disability. She said she is on long-term disability from [employer] where she hurt her back. 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 She has 2 children a son and a daughter. She lives with her mother and her son. She does not have a power of assistant attorney general desires to be a full code. She denies any marijuana or illicit drugs. Smoking status: Former smoker Tobacco type: e-cigarettes/vaping Second hand tobacco smoke exposure: No Alcohol intake: never Substance use: former Substance use type: marijuana Do You Feel Safe in your Home?: Yes Lack of Transportation: No Lack of Food: Never True Current Housing: I Have Housing Concerned About Future Housing: No Difficulty Paying Gas/Electric Bills: No Difficulty Paying for Meds: No Currently Unemployed: No Education: Trade/Vocational Certificate Difficulty w/ Childcare or Family Care: No Living arrangements: with family Occupation/Education: other Additional occupation/education comments: disabilty Gender identity (if verbalized by the patient): Female Spiritual care concerns: No Agree to blood products: Yes Comments At time of signature, I have reviewed and agree with nursing past medical, adan
--- NOTE | 2023-12-21 16:42 | PC.NURSE ---
+PMS POST SPLINT AND SLING APPLICATION
== END 2023-12-21 16:40 | disposition home or self-care (01) ==
PROVIDERS: Emergency Provider Nurse Practitioner; PCP Family Medicine Adolescent Medicine
DX: S52.502A Unspecified fracture of the lower end of left radius, initial encounter for closed fracture (principal); W07.XXXA Fall from chair, initial encounter; Z86.711 Personal history of pulmonary embolism; Z79.01 Long term (current) use of anticoagulants; E03.9 Hypothyroidism, unspecified; I10 Essential (primary) hypertension; E11.42 Type 2 diabetes mellitus with diabetic polyneuropathy; F31.9 Bipolar disorder, unspecified; Z90.710 Acquired absence of both cervix and uterus; Z87.891 Personal history of nicotine dependence
CPT/HCPCS: 29125; 73110; 99214; A4565; G0463

== ENCOUNTER 2024-01-09 14:06 | Outpatient (CLI) | payer OTHER, SELFPAY ==
--- NOTE | ~2024-01-09 | XR_ITS ---
EXAMINATION: XR wrist LT w scaphoid DATE: 01/09/2024 14:26 INDICATION: Unspecified fracture at the left wrist TECHNIQUE: Posteroanterior, scaphoid, oblique, and lateral views of the left wrist were obtained. COMPARISON: 12/21/2023 FINDINGS: There is Fiberglas casting material about the left wrist and forearm which obscures fine bone and sof t tissue detail. Again seen is minimally displaced transverse extra articular fracture at the distal left radial metaphysis. There is dorsal impaction with mild comminution along the dorsal margin of th e fracture. There is been interval increase in previously 14 degrees, currently 23 degrees dorsal til t of the distal articular surface. No definitive productive changes of healing yet apparent although sensitivity is decreased by the superimposed casting material. No other fractures identified. Normal alignment and joint spaces in the visualized left hand. IMPRESSION: 1. Casted mildly comminuted extra articular fracture of the distal left radius with increased, now 23 degrees dorsal tilt of the distal articular surface. Reviewed, dictated and finalized at location A.
== END 2024-01-09 14:07 | disposition home or self-care (01) ==
LOC: ANHIMG 14:08
PROVIDERS: PCP Family Medicine Adolescent Medicine; Visit Provider Orthopaedic Surgery
DX: S52.502D Unspecified fracture of the lower end of left radius, subsequent encounter for closed fracture with routine healing (principal); X58.XXXD Exposure to other specified factors, subsequent encounter
CPT/HCPCS: 73110

== ENCOUNTER 2024-01-11 08:55 | Outpatient (CLI) | payer OTHER, SELFPAY ==
[2024-01-11 10:55] LABS: Anion Gap 5 mmol/L (4-12); Blood Urea Nitrogen 28 mg/dL (7-17); Carbon Dioxide 31 mmol/L (22-30); Chloride 102 mmol/L (98-107); Estimated Glomerular Filt Rate > 60; Glucose 130 mg/dL (65-110); Potassium 4.4 mmol/L (3.4-5.0); Sodium 138 mmol/L (137-145)
== END 2024-01-11 08:56 | disposition home or self-care (01) ==
PROVIDERS: Anesthesiology; PCP Family Medicine Adolescent Medicine; Visit Provider Orthopaedic Surgery
DX: E11.9 Type 2 diabetes mellitus without complications (principal); Z01.818 Encounter for other preprocedural examination
CPT/HCPCS: 36415; 80048

== ENCOUNTER 2024-01-12 02:39 | Day surgery (SDC) | payer OTHER, SELFPAY ==
--- NOTE | 2024-01-11 09:17 | PC.NURSE ---
Addendum entered by Raven Bruner RN 01/11/24 09:56: TIME CHANGE: ARRIVE AT 11:30AM ON 01/12/24 FOR SURGERY AT 1:30PM. STOP DRINKING CLEAR LIQUIDS AT 10:30AM ON DAY OF SURGERY. PT RELAYS UNDERSTANDING. Original Note: Report to the Outpatient Waiting Room, entrance under the green pavilion located off [facility], at time ___12:30PM____ on date ___01/12/24____. Planned Procedure Time: ___2:30PM .? Time changes happen often and if your time is changed the preop area will call you the afternoon before. - You and your visitor will be asked to self-screen and do not enter if you have any COVID symptoms. Please call surgeon if you need to reschedule. - A mask is optional within the hospital at this time. Patients may have clear liquids (water, carbonated beverages, clear teas, apple juice) until 11:30AM 3 hours prior to surgery with a maximum of 20 ounces. - No food from midnight until time of surgery and no smoking. Take only the following medications with a SIP of water on the morning of surgery: ____GABAPENTIN, LEVETIRACETAM, LEVOTHYROXINE, TRAMADOL. TAKE 1/2 DOSE OF MORNING INSULIN-LISPRO 5 UNITS ON MORNING OF SURGERY. DO NOT STOP ANY OF YOUR OTHER PRESCRIPTION MEDICATIONS PRIOR TO SURGERY EXCEPT THE FOLLOWING Medications to discontinue per physician ____HOLD ELIQUIS 24 HRS PRE-OP PER DR CORNELL. INSTRUCTED BY SURGEON TO TAKE LAST DOSE MORNING DOSE ON 01/11/24___ Please no make-up, nail croatian, hairspray, perfume, deodorant, or body powder the day of surgery.? No jewelry (including any body piercings) or valuables the day of surgery, leave them at home.? Please take a shower or bath the night before, or the morning of, surgery with an antibacterial soap.? Wear comfortable, loose fitting clothing.? - Jewelry must be removed prior to entering the operating room.? Rings and piercings that are not removed may be cut off. - The hospital will not accept responsibility for valuables.? - Please leave all valuables, including medications, at home the day of surgery. If you are going home after surgery, a licensed cart driver must drive you home.? - NO public transportation without another adult if you receive anesthesia. - We recommend that an adult stay with you for 24 hours following discharge. - We also recommend that you do not drive, make important decision, drink alcoholic beverages, or take any drugs that were not prescribed by your health care provider for at least 24 hours after your discharge time. Follow any additional instructions given to you from your surgeon. Telephone instructions given to PATIENT and asked if any additional questions and then verbalized understanding. Patient advised to call surgeon office or pre surgery nurse liaison [phone] if any additional questions.
[2024-01-11 09:18] VITALS: BP 139/85; PULSE 74; RESP 16; TEMP 36.2; O2SAT 100; BMI 27.0
[2024-01-12] VITALS (10 sets, daily range): BP systolic 135–152; BP diastolic 85–99; PULSE 70–88; RESP 12–20; TEMP 36–36.4; O2SAT 93–99
--- NOTE | ~2024-01-12 | XR_ITS ---
INTRAOPERATIVE FLUOROSCOPY: CLINICAL HISTORY: 58 years old Female; ORIF LEFT DISTAL RADIUS FX PROCEDURE COMMENTS: Limited intraoperative fluoroscopy of the left wrist was performed. CUMULATIVE DOSE: 1.63 mGy FLUOROSCOPY TIME: 41.7 seconds FINDINGS/IMPRESSION: Please refer to operative note for further details. Reviewed, dictated and finalized at location A.
--- NOTE | 2024-01-12 10:51 | WPDHPUPDATE1 ---
History and Physical Update Update Date/Time: 01/12/24 10:51 History and Physical has been reviewed, including an updated exam of the patient. There are NO changes in the patient's condition. Risks, benefits, and alternatives have been discussed and questions answered. Patient agrees to proceed with procedure.
[2024-01-12] MEDS: LACTATED RINGERS 1,000 ML 30 ML IV CONT (12:40)
[2024-01-12 12:43] LABS: Glucose Point of Care 119 mg/dl (65-105)
--- NOTE | 2024-01-12 13:29 | P.PNAN_ITS ---
Anes - Initial Pre Proc Eval Procedure: Operation Date: 01/12/24 13:30 Proposed Procedures p Open Reduction Internal Fixation Left Distal Radius Fracture - Rocco Alvarado MD Date/Time: 01/12/24 13:29 Surgeon: Rocco Alvarado MD Pre Op Diagnosis: Left Distal Radius Fx Patient Data Age: 58 Gender: F Height: 1.65 m Weight: 74.3 kg Last Vital Signs Temp 96.8 F L 01/12/24 12:51 Pulse 79 01/12/24 12:51 Resp 16 01/12/24 12:51 BP 135/94 H 01/12/24 12:51 Pulse Ox 99 01/12/24 12:51 O2 Del Method Room Air 01/12/24 12:51 Allergies Allergy/AdvReac Type Severity Reaction Status Date / Time penicillin V AdvReac Mild Nausea and Verified 01/12/24 11:52 Vomiting Home Medications Medication Instructions Recorded Confirmed Type blood-glucose meter,continuous #1 ea 06/28/23 01/10/24 Rx (FreeStyle Brenna 3 [place]) blood-glucose sensor (FreeStyle #3 ea 06/28/23 01/10/24 Rx Brenna 3 Sensor device) citalopram 40 mg tablet 40 mg PO QPM #90 tabs 09/08/23 01/11/24 Rx tirzepatide 10 mg/0.5 mL 10 mg (0.5 mL) subcut WEEKLY #2 mL 09/18/23 01/11/24 Rx subcutaneous pen injector (Inocencia) apixaban 5 mg tablet (Eliquis) 5 mg PO Q12HR #180 tabs 10/05/23 01/12/24 Rx gabapentin 600 mg tablet See Rx Instructions .Route 10/08/23 01/11/24 Rx .COMPLEX #120 tabs insulin lispro 100 unit/mL 10 unit (0.1 mL) subcut TID #15 mL 10/30/23 01/11/24 Rx subcutaneous pen (Humalog KwikPen (U-100) Insulin) pen needle, diabetic 32 gauge x #100 ea 11/10/23 01/10/24 Rx 5/32 (TRUEplus Pen Needle) levetiracetam 1,000 mg tablet 1,500 mg PO BID #90 tabs 11/14/23 01/11/24 Rx tramadol 50 mg tablet 100 mg PO TID PRN pain #90 tabs 11/29/23 01/12/24 Rx insulin glargine 100 unit/mL (3 See Rx Instructions .Route 12/07/23 01/11/24 Rx mL) subcutaneous pen (Lantus .COMPLEX #15 mL Solostar U-100 Insulin) levothyroxine 75 mcg tablet See Rx Instructions .Route 12/07/23 01/12/24 Rx .COMPLEX #90 tabs blood sugar diagnostic (OneTouch #100 ea 12/13/23 01/10/24 Rx Verio test strips) atorvastatin 40 mg tablet 40 mg PO QHS #90 tabs 01/01/24 01/11/24 Rx lisinopril 20 1 tablet PO QAM 01/11/24 01/12/24 History mg-hydrochlorothiazide 25 mg tablet metformin 500 mg tablet,extended 500 mg PO BID 01/11/24 01/11/24 History release 24 hr ropinirole 0.25 mg tablet 0.5 mg PO HS 01/11/24 01/11/24 History oxycodone-acetaminophen 5 mg-325 1 - 2 tablet PO Q4-6H PRN pain #30 01/12/24 Rx mg tablet tabs Laboratory Tests 01/12/24 12:41 POC Capillary Glucose 119 H mg/dl (65-105) Patient hx anesthesia problems: none Family hx anesthesia problems: none Results Review: All pre-operative results and documents have been reviewed as part of the pre- operative evaluation. [facility] Past Medical History Medical History Bipolar disorder Degenerative disc disease Depression with anxiety Drug-induced tremor Fibromyalgia History of DVT of lower extremity Postoperatively after her hysterectomy Hypertension Hypothyroidism Kidney stones Lupus Obese Peripheral neuropathy Hands and feet Pulmonary emboli Postop hysterectomy Type 2 diabetes mellitus with diabetic neuropathy affecting both sides of body Surgical History Surgical History H/O tubal ligation H/O: hysterectomy vaginal Family History Family History Sibling Diabetes mellitus Mother Diabetes mellitus Depression Hypertension Father Acute myocardial infarction Depression Diabetes mellitus Heart disease Hypertension Grandparent Breast cancer Parkinson disease Grandparent Carcinoma of colon Social History Social History Social History: The patient stated that she drank and smoked when her boyfriend did but she no longer smokes or drinks. She attempted to get disability but was unable to get disability. She said she is on long-term disability from [facility] where she hurt her back. 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 She has 2 children a son and a daughter. She lives with her mother and her son. She does not have a power of assistant attorney general desires to be a full code. She denies any marijuana or illicit drugs. 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 [facility] X1 WEEK Do You Feel Safe in your Home?: Yes Lack of Transportation: No Lack of Food: Never True Current Housing: I Have Housing Concerned About Future Housing: No Difficulty Paying Gas/Electric Bills: No Difficulty Paying for Meds: No Currently Unemployed: No Education: Trade/Vocational Certificate Difficulty w/ Childcare or Family Care: No Living arrangements: with family Additional living arrangements comments: MOTHER, CHILDREN, GRANDCHILDREN Occupation/Education: other Additional occupation/education comments: disabilty Gender identity (if verbalized by the patient): Female Spiritual care concerns: No Agree to blood products: Yes Anes - Eval Final PreProcedure Day of Procedure 01/12/24 13:29 Patient weight: overweight Heart: regular rate and rhythm Lungs: clear to auscultation Airway: Mallampati scale and special considerations (Edentulous. ) Neurological: alert and oriented Last oral intake: >/= 8 hours ASA classification: III Emergent: no Anesthetic plan: proceed Anesthesia type and monitoring: general ETT and standard monitoring Results Review: All pre-operative results and documents have been reviewed as part of the pre- operative evaluation. DM, hx of PE 08/11 without clear etiology, had DVT in post surgical. Now on eliquis but has held that for 3 days. She states hypercoag workup has been neg. DM on monjaro, last does 2 days ago. Informed Consent: The patient's anesthetic plan and its attendant risks and benefits were discussed with the patient/family/POA. Questions were solicited and answers provided to the satisfaction of the patient/family/POA.
[2024-01-12] MEDS: KETOROLAC 15 MG/ML VIAL (*BKC) IV PUSH (13:32)
[2024-01-12] MEDS: ACETAMINOPHEN 500 MG TABLET 1000 MG PO (13:32)
[2024-01-12] MEDS: ceFAZolin 2 GM/D5W 50 ML 2 GM/50 ML BAG IVPB (13:50)
[2024-01-12] MEDS: BUPIVACAINE/EPINEPHRINE 0.5% 50 ML VIAL 20 ML INFILTRATE (14:56)
[2024-01-12 15:49] LABS: Glucose Point of Care 137 mg/dl (65-105)
--- NOTE | 2024-01-12 16:26 | W.PM.PROC2 ---
Procedure Note - Detailed Date of Procedure 01/12/24 Pre-op Diagnosis Left displaced extra-articular distal radius fracture Post-op Diagnosis Same Procedure Performed ORIF left distal radius extra-articular fracture with volar plate. Surgeon Rocco Alvarado MD Anesthesia General Indications Progressive displacement despite initial conservative treatment. Findings Dorsally displaced and impacted fracture with some early healing. Near anatomic reduction obtained. Description of Procedure Preoperative antibiotics were given. A general anesthetic was administered. The hand was prepped and draped in the usual sterile fashion with a well-padded tourniquet. The limb was exsanguinated and the tourniquet inflated to 250 millimeters of mercury. A longitudinal incision was created over the flexor carpi radialis tendon. Dissection was brought down through the sheath. The pronator quadratus was identified and released off of the radius. 7 pounds of finger trap traction applied. The fracture was carefully exposed and cleared of debris. Reduction was obtained with traction and manipulation. Fluoroscopy was used to confirm anatomic reduction. The volar plate was placed on the radius and the position was confirmed. Provisional pins were placed. The dynamic cortical screw was applied. The plate was fine tuned and fluoroscopy was use to confirm that the joint would not be violated. Subsequent distal locking screws were placed. Two proximal locking screws were placed. The wound was irrigated and closed. 3-0 Monocryl suture was used to reapproximate the pronator quadratus. The tourniquet was released and meticulous hemostasis was confirmed. The skin was closed with 3-0 Monocryl suture and a running 4-0 Monocryl suture. Steri-Strips were applied on the skin. A sterile bulky dressing with a volar splint was applied. Implants Arthrex 3 hole narrow plate. 5, 2.4 mm variable angle locking screws. 3, 3.5 mm screws: two locking screws, 1 cortical screw. Estimated Blood Loss 25 Tourniquet Time Total Tourniquet Time: 55 Drains No Packing No Pathology None sent Complications No immediate complications Condition Stable Disposition PACU [facility] Billing Surgery - Charge Forward: Surgery Billing
== END 2024-01-12 17:29 | disposition home or self-care (01) ==
PROVIDERS: PCP Family Medicine Adolescent Medicine; Visit Provider Orthopaedic Surgery
PROC: (CPT 25575; principal; 2024-01-12 13:30)
DX: S52.552A Other extraarticular fracture of lower end of left radius, initial encounter for closed fracture (principal); W07.XXXA Fall from chair, initial encounter; I10 Essential (primary) hypertension; E11.40 Type 2 diabetes mellitus with diabetic neuropathy, unspecified; E03.9 Hypothyroidism, unspecified; M32.9 Systemic lupus erythematosus, unspecified; F31.9 Bipolar disorder, unspecified; F41.9 Anxiety disorder, unspecified; M79.7 Fibromyalgia; Z86.718 Personal history of other venous thrombosis and embolism; Z86.711 Personal history of pulmonary embolism; Z79.01 Long term (current) use of anticoagulants; Z79.85 Long-term (current) use of injectable non-insulin antidiabetic drugs; Z79.4 Long term (current) use of insulin; Z79.84 Long term (current) use of oral hypoglycemic drugs
CPT/HCPCS: 25607; 82948; 99199; A9270; C1713; C1769; J0690; J1885; J2003; J2250; J2270; J2405; J2704; J3010; J7120

== ENCOUNTER 2024-02-22 10:01 | Outpatient (CLI) | payer OTHER, SELFPAY ==
--- NOTE | ~2024-02-22 | XR_ITS ---
EXAMINATION: XR wrist LT w scaphoid DATE: 02/22/2024 10:23 INDICATION: Other specified post procedural states post recent internal fixation of a distal left rad ial fracture TECHNIQUE: Posteroanterior, ulnar deviation, oblique, and lateral views of the left wrist were obtain ed. COMPARISON: 01/09/20 FINDINGS: Volar T plate and screw fixation of an extra articular fracture of the distal left radius which is no w in near anatomic alignment. There is a small amount of not yet solidly bridging callus formation ab out the fracture. There is a second unfixed nondisplaced fracture of the ulnar styloid process. No ne w fractures identified. Mild osteoarthritis at the first carpometacarpal and a few distal interphalan geal joints. IMPRESSION: 1. . Healing internally fixed distal left radial fractures which is in near anatomic alignment. 2. Nondisplaced ulnar styloid avulsion fracture Reviewed, dictated and finalized at location A. LLECTUAL PROPERTY COUNSEL IMPRESSION: 1. . Healing internally fixed distal left radial fractures which is in near sam tomic alignment. 2. Nondisplaced ulnar styloid avulsion fracture
== END 2024-02-22 10:02 | disposition home or self-care (01) ==
PROVIDERS: PCP Family Medicine Adolescent Medicine; Visit Provider Orthopaedic Surgery
DX: S52.615D Nondisplaced fracture of left ulna styloid process, subsequent encounter for closed fracture with routine healing (principal); X58.XXXD Exposure to other specified factors, subsequent encounter; Z98.890 Other specified postprocedural states; Z87.81 Personal history of (healed) traumatic fracture
CPT/HCPCS: 73110

== ENCOUNTER 2024-11-08 09:06 | Outpatient (CLI) | payer OTHER, SELFPAY ==
--- OUTSIDE RECORDS SUMMARY | 2024-11-08 09:29 | XMS_ITS | Clinical Summary ---
Author Organization [facility] Address [address] [address] Phone Care Team Providers Care Mica Washer Gluer Name Role Phone Louie Ahn MD Primary Care Provider + Social History Tobacco Use Types Packs/Day Years Used Date Smoking Tobacco: Never Assessed Comments Unknown Sex and Gender Information Value Date Recorded Sex Assigned at Not on file Legal Sex Female 7:08 AM CDT Gender Identity Not on file Sexual Orientation Not on file Plan of Treatment Health Maintenance Due Date Last Done Comments Hepatitis C Virus (HCV) Screening 1965 TdaP Immunization 1965 Hepatitis B Immunization (1 of 3 - 19+ 3-dose series) 12/04/1986 04/23/1996 Pap Smear 12/04/1988 Cervical Cancer Screening (CCS) 12/04/1997 HPV/Cotest 12/04/1997 Cologuard 12/04/2012 Immunochemical Fecal Occult Blood 12/04/2012 Pneumococcal Immunization (5 0+ years) (1 of 1 - PCV) 12/04/2017 Zoster Immunization (1 of 2) 12/04/2017 Colonoscopy 01/11/2020 01/10/2019 Colorectal Cancer Screening 01/11/2020 SARS-COV-2 Immunization ( season) 2023 02/03/2021, 06/06/2020, 05/20/2020 Influenza Immunization (#1) 2024 Respiratory Syncytial Virus (RSV) Immunization (Adult) (1 - 1-dose 75+ series) 12/04/2042 Human Papillomavirus (HPV) Immunization Aged Out No longer eligible b ased on patient's age to complete this topic Meningococcal Immunization (ACWY) Aged Out No longer eligible b ased on patient's age to complete this topic Rotavirus Immunization Aged Out No lo nger eligible based on patient's age to complete this topic Procedures Procedure Name Priority Date/Time Associated Diagnosis Comments COLONOSCOPY Routine 01/10/2019 from Last 3 Months or Most Recently Relevant to Health Maintenance Results * COLONOSCOPY (01/10/2019) José Miguel Esposito DO PROCEDURE/MINOR SURGICAL ORDERA BLES Final Result from Last 3 Months or Most Recently Relevant to Health Maintenance Insurance Care Teams Mica Washer Gluer Relationship Specialty Start Date End Date Louie Ahn MD PCP - General Family Medicine 01/16/19
[2024-11-08 10:01] LABS: Hemoglobin A1C 6.4 % (<5.7)
[2024-11-08 10:08] LABS: Alanine Aminotransferase 23 U/L (6-35); Albumin Level 4.2 g/dL (3.5-5.1); Alkaline Phosphatase 112 U/L (38-126); Anion Gap 8 mmol/L (4-12); Aspartate Amino Transferase 26 U/L (14-36); Bilirubin,Total 1.2 mg/dL (0.2-1.3); Blood Urea Nitrogen 24 mg/dL (7-17); Calcium 9.0 mg/dL (8.4-10.2); Carbon Dioxide 26 mmol/L (22-30); Chloride 104 mmol/L (98-107); Cholesterol 171 mg/dL (0-200); Estimated Glomerular Filt Rate > 60; Glucose 161 mg/dL (65-110); HDL Direct 48 mg/dL; Potassium 4.1 mmol/L (3.4-5.0); Sodium 138 mmol/L (137-145); Total Protein 7.5 g/dL (6.3-8.2); Triglycerides 78 mg/dL (<150)
[2024-11-08 10:24] LABS: MALB Creatinine Ratio 6.0 mg/g (0-30)
[2024-11-08 10:37] LABS: Thyroid Stimulating Hormone 0.944 uIU/mL (0.465-4.680)
== END 2024-11-08 09:07 | disposition home or self-care (01) ==
LOC: ANHLAB 09:08
PROVIDERS: PCP Family Medicine Adolescent Medicine; Visit Provider Nurse Practitioner Family
DX: F41.8 Other specified anxiety disorders (principal); F31.9 Bipolar disorder, unspecified; I10 Essential (primary) hypertension; E78.00 Pure hypercholesterolemia, unspecified; E11.42 Type 2 diabetes mellitus with diabetic polyneuropathy; E03.9 Hypothyroidism, unspecified
CPT/HCPCS: 36415; 80053; 80061; 82043; 83036; 84443; 86803

== ENCOUNTER 2025-01-08 10:11 | Outpatient (CLI) | payer OTHER, SELFPAY ==
--- NOTE | ~2025-01-08 | MMUS_ITS ---
EXAMINATION: MM diagnostic ashley BI w radha, US breast LT limited INDICATION: 59-year old female; Evaluation of left breast palpable lump. Annual screening right breast. COMPARISON: 11/25/2020 through 12/06/2013 TECHNIQUE: Digital breast tomosynthesis CC and MLO views of the BILATERAL breast and True lateral and spot compression of the LEFT breast were obtained with computer-aided detection to assist in interpretation of the study. A radiopaque skin marker was placed over the area of LEFT breast palpable lump. FINDINGS: There are scattered areas of fibroglandular density. There are no suspicious masses, calcifications, architectural distortion or any other abnormality in either breast. No suspicious mammographic abnormality correlates to the radiopaque skin marker. LEFT BREAST ULTRASOUND FINDINGS: Targeted sonographic evaluation of the palpable lump area was completed. There is no sonographic abnormality that correlates to the area of palpable lump identified by the patient. IMPRESSION: No mammographic or sonographic finding correlates to the palpable lump area in the LEFT breast. No mammographic evidence of malignancy in either breast. Recommendations: Clinical management of patient's palpable lump. BI-RADS Category 1: Negative Reviewed, dictated and finalized at location B. IMPRESSION: No mammographic or sonographic finding correlates to the palpable lump area in the LEFT breast. No mammographic evidence of malignancy in either breast. Recommendations: Clinical management of patient's palpable lump. BI-RADS Category 1: Negative
--- OUTSIDE RECORDS SUMMARY | 2025-01-08 12:15 | XMS_ITS | Data Portability ---
Author Organization [facility] [place] Address [address] [place] [address] Care Team Providers Care Java Developer Name Role Phone ALEJANDRO HICKEY Primary Care Provider Assessment Encounter Date Assessment Date Assessment LastModified by Organization Details LastModified Time 05/20/2022 05/20/2022 Annual gynecological exam performed. Patient will come back in a year unless there are new symptoms. Not available 05/20/2022 14:46:48 11/29/2024 11/29/2024 Annual gynecological exam performed. Patient will come back in a year unless there are new symptoms. [email or web address] Not available 11/29/2024 12:19:33 Plan of Treatment Reminders Order Date Submit Date Provider Last Modified By Organization Details Last Modified Time Details Appointments None recorded. Lab urinalysis, dipstick 2022 023 [address], [address], [place], [address], 12:13:28 Referral [email or web address] gist referral - Please reach out to Ruchi to schedule her for an appt in your office. Ruchi has stated that if she does not answer to please leave a detailed vm and she will return your call as soon as possible the same day. Attached to this referral, please find Parul's demographic s and most recent office visit note. If you have any questions or require further information , please contact me at [phone]. Thank you, SHONNA Clement 2021 022 [email or web address] [facility], [address], [place], [address], 2 13:44:26 Procedures None recorded. Surgeries None recorded. Imaging MAMMO, diagnostic, digital, bilateral 2024 025 [facility], [address], [place], [address], 5 04:00:55 US, breast, unilateral - left breast lump, around 3/4 oclock 2024 025 [facility], [address], [place], [address], 5 04:00:55 MAMMO, screening, bilateral 2022 023 [facility], [address], [place], [address], 3 05:00:49 Medication Orders Diflucan 150 mg tablet [address] [facility] [place], [address], 5 12:22:28 nystatin-tr iamcinolone 100,000 unit/gram-0 .1 % topical ointment [address] [facility], [address] [place], [address], 5 12:24:52 Macrobid 100 mg capsule [address] [facility] [address], [address] [place], [address], 5 12:24:50 triamcinolo ne acetonide 0.1 % topical ointment 2022 023 [facility] [address], [address] [place], [address], 3 15:08:42 progesteron e micronized 100 mg capsule 2021 022 [email or web address] [facility], [address] [place], [address], 5 12:25:58 Celexa 40 mg tablet 2021 022 BRIE [facility], [address] [place] [address], [address], 2 15:20:29 Celexa 20 mg tablet 2020 021 [facility], [address] [place] [address], [address], 3 14:47:13 Patient TargetsNo targets recorded. Patient InstructionsNo instructions recorded. Reason for Referral Urogynecologist Referral for Urge incontinence of urine Please reach out to Ruchi to schedule her for an appt in your office. Ruchi has stated that if she does not answer to please leave a detailed vm and she will return your call as soon as possible the same day.Attached to this referral, please find Ruchi's demographics and most recent office visit note. If you have any questions or require further information, please contact me at [phone]. Thank you, SHONNA Clement Referring Physician: Katty Ceja, [employer]ODU[employer] OPERATOR, Encounter Date: 04/28/2021 Results Created Date Observation Date Name Description Value Unit Range Abnormal Flag Note LastModifiedBy Organization Detail LastModifiedTime 12/29/1912/28/2022 URINA LYSIS , WITH MICRO SCOPI C, REFLE X CULTU RE color, urine Light Yellow Not Available [facility] (Lab) [address], [place], [address], 12/29/2022 22:44:40 12/29/19 23 12/28/2022 URINA LYSIS , WITH MICRO SCOPI C, REFLE X CULTU RE clarity, urine Clear Not Available [facility] (Lab) [address], [place], [address], 12/29/2022 22:44:40 12/29/19 23 12/28/2022 URINA LYSIS , WITH MICRO SCOPI C, REFLE X CULTU RE specific gravity, urine 1.010 . 1.005- 1.035 Not Available [facility] (Lab) [address], [place], [address], 12/29/2022 22:44:40 12/29/19 23 12/28/2022 URINA LYSIS , WITH MICRO SCOPI C, REFLE X CULTU RE pH, urine 6.0 . 5.0-7. 0 Not Available [facility] (Lab) [address], [place], [address], 12/29/2022 22:44:40 12/29/19 23 12/28/2022 URINA LYSIS , WITH MICRO SCOPI C, REFLE X CULTU RE protein, UA Negati ve mg/dL negati ve, - Not Available [facility] (Lab) [address], [place], [address], 12/29/2022 22:44:40 12/29/19 23 12/28/2022 URINA LYSIS , WITH MICRO SCOPI C, REFLE X CULTU RE glucose, urine >1000 mg/dL negati ve abnormal Not Available [facility] (Lab) [address], [place], [address], 12/29/2022 22:44:40 12/29/19 23 12/28/2022 URINA LYSIS , WITH MICRO SCOPI C, REFLE X CULTU RE ketones, urine Trace mg/dL negati ve abnormal Not Available [facility] (Lab) [address], [place], [address], 12/29/2022 22:44:40 12/29/19 23 12/28/2022 URINA LYSIS , WITH MICRO SCOPI C, REFLE X CULTU RE bilirubin, urine Negati ve negati ve Not Available [facility] (Lab) [address], [place], [address], 12/29/2022 22:44:40 12/29/19 23 12/28/2022 URINA LYSIS , WITH MICRO SCOPI C, REFLE X CULTU RE blood, urine Negati ve negati ve Not Available [facility] (Lab) [address], [place], [address], 12/29/2022 22:44:40 12/29/19 23 12/28/2022 URINA LYSIS , WITH MICRO SCOPI C, REFLE X CULTU RE nitrite, urine Negati ve negati ve Not Available [facility] (Lab) [address], [place], [address], 12/29/2022 22:44:40 12/29/19 23 12/28/2022 URINA LYSIS , WITH MICRO SCOPI C, REFLE X CULTU RE leukocyte esterase, urine 75 juan diego/u L negati ve abnormal Not Available [facility] (Lab) [address], [place], [address], 12/29/2022 22:44:40 12/29/19 23 12/28/2022 URINA LYSIS , WITH MICRO SCOPI C, REFLE X CULTU RE urobilinogen , urine Normal mg/dL normal , <2.0 Not Available [facility] (Lab) [address] [place], [address], 12/29/2022 22:44:40 12/29/19 23 12/28/2022 URINA LYSIS , WITH MICRO SCOPI C, REFLE X CULTU RE RBC, urine 0-2 /hpf none, 0-2 Not Available [facility] (Lab) [address], [place], [address], 12/29/2022 22:44:40 12/29/19 23 12/28/2022 URINA LYSIS , WITH MICRO SCOPI C, REFLE X CULTU RE WBC, urine 0-5 /hpf none, 0-5 Not Available [facility] (Lab) [address], [place], [address], 12/29/2022 22:44:40 12/29/19 23 12/28/2022 URINA LYSIS , WITH MICRO SCOPI C, REFLE X CULTU RE squamous epithelial cells, urine Modera te /hpf none abnormal Not Available [facility] (Lab) [address], [place], [address], 12/29/2022 22:44:40 12/29/19 23 12/28/2022 URINA LYSIS , WITH MICRO SCOPI C, REFLE X CULTU RE bacteria, urine Trace /hpf none abnormal Not Available [facility] (Lab) [address], [place], [address], 12/29/2022 22:44:40 12/29/19 23 12/28/2022 URINA LYSIS , WITH MICRO SCOPI C, REFLE X CULTU RE hyaline cast, urine None /lpf none, 0-2 Urine Cultu re to follo w. Not Available [facility] (Lab) [address], [place], [address], 12/29/2022 22:44:40 12/29/19 23 12/28/2022 VAGIN ITIS/ VAGIN OSIS, DNA PROBE fallon sp. detection, direct probe Negati ve negati ve Not Available [facility] (Lab) [address], [place], [address], 12/29/2022 22:44:41 12/29/19 23 12/28/2022 VAGIN ITIS/ VAGIN OSIS, DNA PROBE gardnerella vag. detection, direct probe Positi ve negati ve abnormal Not Available [facility] (Lab) [address], [place], [address], 12/29/2022 22:44:41 12/29/19 23 12/28/2022 VAGIN ITIS/ VAGIN OSIS, DNA PROBE trichomonas vag. detection, direct probe Negati ve negati ve Not Available [facility] (Lab) [address], [place], [address], 12/29/2022 22:44:41 12/29/19 23 12/28/2022 CT/GC AND TRICH OMONA S VAGIN FLORENCE (RRNA ), SWAB chlamydia trachomatis, PCR Negati ve negati ve Not Available [facility] (Lab) [address], [place], [address], 12/29/2022 22:44:41 12/29/19 23 12/28/2022 CT/GC AND TRICH OMONA S VAGIN FLORENCE (RRNA ), SWAB neisseria gonorrhoeae, PCR Negati ve negati ve Not Available [facility] (Lab) [address], [place], [address], 12/29/2022 22:44:41 12/29/19 23 12/28/2022 CT/GC AND TRICH OMONA S VAGIN FLORENCE (RRNA ), SWAB trichomonas vaginalis ribosomal RNA (rrna) Negati ve negati ve Not Available [facility] (Lab) [address], [place], [address], 12/29/2022 22:44:41 12/29/1912/28/2022 CULTU RE: URINE result report SEE RESULT S BELOW Test: Cultu re: Urine Speci men Type: Urine Speci men Date: 12/28 1:39 PM Resul t Date: 12/29 9:40 PM Resul t Statu s: Final resul t Abnor mal: No Resul ting Lab: [facility] [address] [facility] [address] Tel: CULTU RE ----- ----- ----- --- Cultu re resul t (>=3 organ isms prese nt) indic ates possi ble conta minat ion. Repea t cultu re if sympt oms indic ate. Not Available [facility] (Lab) [address], [place], [address], 12/29/2022 22:44:42 12/29/1912/28/2022 urina lysis , dipst ick Leukocytes + Not Available [facility] daniel [address], [place], [address], 12/28/2022 12:12:54 12/29/1912/28/2022 urina lysis , dipst ick pH 5 Not Available [facility] [address], [place], [address], 12/28/2022 12:12:54 12/29/1912/28/2022 urina lysis , dipst ick Blood + Not Available [facility] [address], [place], [address], 12/28/2022 12:12:54 12/29/1912/28/2022 urina lysis , dipst ick Specific [place] 1.005 Not Available [facility] [address], [place], [address], 12/28/2022 12:12:54 12/29/1912/28/2022 urina lysis , dipst ick Ketone + Not Available [facility] [address], [place], [address], 12/28/2022 12:12:54 12/29/1912/28/2022 urina lysis , dipst ick Glucose 1000mg Not Available [facility] [address], [place], [address], 12/28/2022 12:12:54 Result Notes None recorded. Problems Name Problem SNOMED Code Status Onset Date Resolution Date Notes Provider Name and Address Organization Details Recorded Time Adult health examinati on Completed 201311/19/2020 ROUTINE MEDICAL EXAM;Recor ded Elsewhere: No Locatio n: [facility] Gabrielle rce: EHR Chroni c: N Practice ID: [id number] Billa ble Time: 10:45:00 AM Mandi Hill [facility] 11:21:11 Specializ ed medical examinati on Completed 201311/19/2020 Gynecologi amelie Examinatio n;Recorded Elsewhere: No Locatio n: [facility] rce: EHR Chroni c: N Practice ID: [id number] Billa ble Time: 10:45:00 AM Mandi Hill [facility] 11:21:19 Screening for malignant neoplasm of rectum Completed 201411/19/2020 Encounter for screening for malignant neoplasm of rectum;Rec orded Elsewhere: No Locatio n: [facility] rce: EHR Chroni c: N Practice ID: [id number] Billa ble Time: 11:00:00 AM Mandi Hill [facility] 11:21:14 Evaluatio n finding Completed 201411/19/2020 Oth abn and inconclusi ve findings on dx imaging of breast;Rec orded Elsewhere: No Locatio n: [facility] rce: EHR Chroni c: N Practice ID: [id number] Billa ble Time: 11:32:33 AM Mandi Hill [facility] 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 11:21:[address] Concept Completed 201711/19/2020 Encntr for general adult medical exam w/o abnormal findings;R ecorded Elsewhere: No Locatio n: [facility] rce: EHR Chroni c: N Practice ID: [id number] Billmillie ble Time: 08:30:00 AM [facility] 11:21:15 Problem Notes None recorded. Procedures Surgical History Date Name Laterality Status Provider Name and Address Organization Details Recorded Time 12/05/19 21 Date of Last Mammogram completed [facility] 12/30/2020 17:31:17 01/11/20 18 Date of Last Pap Smear completed [facility] 11/19/2020 11:22:38 12/19/18 98 Partial Hysterectomy completed Katty Ceja, [facility]- [address], [place], [address], [facility] 12/31/2020 14:45:28 Imaging Results None recorded. Procedure Notes None recorded. Medical Equipment None Reported. Allergies No known drug allergies Medications Name Sig Start Date Stop Date Status Note LastModified by Organization Details LastModified Time atorvasta tin 40 mg tablet TAKE 1 TABLET BY MOUTH EVERY DAY AT BEDTIME active Not Available Not Available No t Available prednison e 10 mg tablet 11/19 completed Not Available Not Available Not Available gabapenti n 600 mg tablet TAKE 2 TABLETS BY MOUTH TWICE DAILY active Not Available Not Available No t Available atorvasta tin 20 mg tablet TAKE 1 TABLET BY MOUTH ONCE DAILY 11/29 completed Not Available Not Available Not Available citalopra m 40 mg tablet TAKE 1 TABLET BY MOUTH IN THE EVENING active Not Available Not Available No t Available fluconazo le 150 mg tablet TAKE 1 TABLET BY MOUTH ONCE DAILY WITH MEALS FOR 1 DAY 11/29 completed Not Available Not Available Not Available levetirac etam 500 mg tablet TAKE 1 TABLET BY MOUTH TWICE DAILY 05/20 completed Not Available Not Available Not Available citalopra m 10 mg tablet Take 1 tablet every day by oral route for 30 days. 01/21 completed Not Available Not Available Not Available Nystop 100,000 unit/gram topical powder APPLY TOPICALL Y TO RASH TWICE DAILY FOR 7 14 DAYS. 11/29 completed Not Available Not Available Not Available metronida zole 0.75 % (37.5 mg/5 gram) vaginal gel insert 1 applicat orful by vaginal route every day at bedtime x 5 nights 11/29 completed Not Available Not Available Not Available sulfameth oxazole 800 mg-trimet hoprim 160 mg tablet Take 1 tablet every 12 hours by oral route for 5 days. 02/04 completed Not Available Not Available Not Available tramadol 50 mg tablet TAKE 2 TABLETS BY MOUTH THREE TIMES DAILY NEEDED FOR PAIN active Not Available Not Available No t Available glimepiri de 2 mg tablet TAKE 1 TABLET BY MOUTH TWICE DAILY 11/29 completed Not Available Not Available Not Available glimepiri de 1 mg tablet take 1 tablet by oral route every day 11/19 completed Prescrib monique Johnson e: No Locat ion: [facility] M odify By: ashahar tz Encou nter DateTime : 01/12/20 16 09:30:00 AM Not Available Not Available Not Available lamotrigi ne 25 mg tablet TAKE 2 TABLETS BY MOUTH TWICE DAILY 04/28 completed Not Available Not Available Not Available levothyro xine 75 mcg tablet TAKE 1 TABLET BY MOUTH ONCE DAILY active Not Available Not Available No t Available nystatin- triamcino lone 100,000 unit/gram -0.1 % topical ointment APPLY TO THE AFFECTED VULVAR AREA(S) BY TOPICAL ROUTE 2 TIMES PER DAY PRN 11/29 completed Not Available Not Available Not Available citalopra m 20 mg tablet TAKE 1 TABLET BY MOUTH ONCE DAILY FOR 90 DAYS 05/20 completed Not Available Not Available Not Available ropinirol e 0.25 mg tablet TAKE 1 TABLET BY MOUTH TWICE DAILY active Not Available Not Available No t Available cephalexi n 500 mg capsule TAKE 1 CAPSULE BY MOUTH TWICE DAILY 11/19 completed Not Available Not Available Not Available triamcino lone acetonide 0.1 % topical ointment APPLY A THIN LAYER TO THE AFFECTED AERA(S) TWICE DALIY NEEDED active Not Available Not Available No t Available lisinopri l 20 mg-hydroc hlorothia zide 25 mg tablet TAKE 1 TABLET BY MOUTH IN THE MORNING active Not Available Not Available No t Available Euthyrox 50 mcg tablet TAKE 1 TABLET BY MOUTH ONCE DAILY 05/20 completed Not Available Not Available Not Available levetirac etam 750 mg tablet TAKE 1 TABLET BY MOUTH EVERY 12 HOURS 11/29 completed Not Available Not Available Not Available mupirocin 2 % topical ointment APPLY A SMALL AMOUNT TO THE AFFECTED AREA BY TOPICAL ROUTE 3 TIMES PER DAYx 5 days 05/20 completed Not Available Not Available Not Available estradiol 0.5 mg tablet TAKE 1 TABLET BY MOUTH DAILY 11/29 completed Not Available Not Available Not Available pioglitaz one 30 mg tablet TAKE 1 TABLET BY MOUTH ONCE DAILY 05/20 completed Not Available Not Available Not Available metformin ER 500 mg tablet,ex tended release 24 hr TAKE 1 TABLET BY MOUTH TWICE DAILY active Not Available Not Available No t Available lisinopri l 2.5 mg tablet take 1 tablet by oral route every day 11/19 completed Prescrib ed Elsewher e: Yes Loca tion: [facility] odify By: niesha guerin DateTime : 12/05/19 14 10:45:00 AM Not Available Not Available Not Available progester one micronize d 100 mg capsule Take 1 capsule by mouth once daily 11/29 completed Not Available Not Available Not Available insulin lispro (U-100) 100 unit/mL subcutane ous pen ADMINIST ER 10 UNITS UNDER THE SKIN THREE TIMES DAILY BEFORE MEALS 11/29 completed Not Available Not Available Not Available aripipraz ole 5 mg tablet TAKE 1 TABLET BY MOUTH DAILY 11/29 completed Not Available Not Available Not Available Riomet 500 mg/5 mL oral solution take 10 millilit er by oral route 2 times every day with meals 05/20 completed Prescrib ed Elsewher e: Yes Loca tion: [facility] odify By: niesha guerin DateTime : 12/05/19 14 10:45:00 AM Not Available Not Available Not Available nitrofura ntoin monohydra te/macroc rystals 100 mg capsule TAKE 1 CAPSULE BY MOUTH EVERY 12 HOURS WITH MEALS FOR URINARY INFECTIO N FOR 7 DAYS 11/29 completed Not Available Not Available Not Available levetirac etam 1,000 mg tablet TAKE 1 AND 1/2 TABLETS BY MOUTH TWICE DAILY active Not Available Not Available No t Available aripipraz ole 2 mg tablet TAKE 1 TABLET BY MOUTH ONCE DAILY AT BEDTIME 12/28 completed Not Available Not Available Not Available Januvia 50 mg tablet take 2 tablet by oral route every day 11/19 completed Prescrib ed [facility] e: Yes Loca tion: [facility] M odify By: amina webster DateTime : 01/12/20 16 09:30:00 AM Not Available Not Available Not Available Januvia 100 mg tablet TAKE 1 TABLET BY MOUTH DAILY 11/29 completed Not Available Not Available Not Available Lantus Solostar U-100 Insulin 100 unit/mL (3 mL) subcutane ous pen INJECT 10 UNITS UNDER THE SKIN EVERY EVENING 11/29 completed Not Available Not Available Not Available OneTouch Verio test strips USE 1 STRIP TO CHECK BLOOD SUGAR FOUR TIMES DAILY 11/29 completed Not Available Not Available Not Available Victoza 2-Yahir 0.6 mg/0.1 mL (18 mg/3 mL) subcutane ous pen injector 11/29 completed Not Available Not Available Not Available Eliquis 5 mg tablet TAKE 1 TABLET BY MOUTH EVERY 12 HOURS active Not Available Not Available No t Available Jardiance 25 mg tablet TAKE 1 TABLET BY MOUTH ONCE DAILY 05/20 completed Not Available Not Available Not Available OneTouch Verio Flex Meter USE DIRECTED TO CHECK BLOOD SUGAR 4 TIMES DAILY 11/29 completed Not Available Not Available Not Available TRUEplus Pen Needle 32 gauge x 5/32 USE TO INJECT INSULIN FOUR TIMES DAILY 11/29 completed Not Available Not Available Not Available Mounjaro 10 mg/0.5 mL subcutane ous pen injector ADMINIST ER 10 MG UNDER THE SKIN WEEKLY 11/29 completed Not Available Not Available Not Available Mounjaro 12.5 mg/0.5 mL subcutane ous pen injector ADMINIST ER 12.5 MG UNDER THE SKIN WEEKLY active Not Available Not Available No t Available Vitals Date Recorded Systolic And Diastolic Provider Name and Address Organization Details Last Updated DateTime 04/28/2021 126/80 mm[Hg] Katty Ceja, [place]- [address], [place], [address], [facility] 04/28/2021 15:21:08 Date Recorded Body height Body mass index (BMI) Body weight Provider Name and Address Organization Details Last Updated DateTime 04/28/2021 154.94 cm 32.5 kg/m2 90525.89 g Mandi [place] [facility] 04/28/2021 14:40:43 Date Recorded Systolic And Diastolic Provider Name and Address Organization Details Last Updated DateTime 05/20/2022 122/80 mm[Hg] Katty Ceja, [facility]- [address], [place], [address], [facility] 05/20/2022 14:59:24 Date Recorded Body weight Provider Name an d Address Organization Details Last Updated DateTime 05/20/2022 18476.5 g Mandi Canseco [facility] 05/20/2022 14:46:59 Date Recorded Body height Body mass index (BMI) Body weight Systolic And Diastolic Provider Name and Address Organization Details Last Updated DateTime 11/29/2024 154.94 cm 31.2 kg/m2 39146.74 g 133/86 mm[Hg] Salima Sheets [facility] 11/29/2024 12:21:16 Date Recorded Body height Body mass index (BMI) Body weight Systolic And Diastolic Provider Name and Address Organization Details Last Updated DateTime 12/28/2022 154.94 cm 31.4 kg/m2 90684.33 g 122/83 mm[Hg] Traci Vences [facility] 12/28/2022 12:11:54 Date Recorded Body height Body mass index (BMI) Body weight Systolic And Diastolic Provider Name and Address Organization Details Last Updated DateTime 02/04/2021 154.94 cm 34.4 kg/m2 53423.81 g 110/76 mm[Hg] Mandi Hill [facility] 02/04/2021 16:19:07 Social History Question Answer Notes LastModified by Organizat ion Details LastModified Time Tobacco Smoking Status Never Smoker Mandi Hill [facility] 11/19/2020 11:28:17 Do You Have An Advance Directive? Yes [email or web address] Information n ot available 11/29/2024 How Many Years Have You Consumed Alcohol? 0 [email or web address] Information not available 11/29/2024 Are You Blind Or Do You Have Difficulty Seeing? No Information n ot available 11/19/2020 What Is Your Level Of Caffeine Consumption? Moderate [email or web address] Information not available 11/29/2024 How Much Tobacco Do You Chew? None Information not available 11/29/2024 In The 14 Days Before Symptom Onset, Have You Had Close Contact With A Laboratory-confirm ed COVID-19 While That Case Was Ill? No Information n ot available 12/28/2022 In The 14 Days Before Symptom Onset, Have You Had Close Contact With A Person Who Is Under Investigation For COVID-19 While That Person Was Ill? No Information not available 12/28/2022 Have You Been To An Area Known To Be High Risk For COVID-19? No Information not available 12/28/2022 Are You Deaf Or Do You Have Serious Difficulty Hearing? No Information not available 11/19/2020 What Type Of Diet Are You Following? REGULAR Information n ot available 11/19/2020 What Is The Highest Grade Or Level Of School You Have Completed Or The Highest Degree You Have Received? [id number] Information not available 11/29/2024 Are There Any Guns Present In Your Home? No [email or web address] Information not available 11/29/2024 Do You Use Protection During Sex? Usually [email or web address] Information not available 11/29/2024 Do You Use Your Seat Belt Or Car Seat Routinely? Yes Information not available 11/19/2020 Do You Have Smoke And Carbon Monoxide Detectors In Your Home? Yes Information not available 11/19/2020 At What Age Did You Start Smoking Tobacco? 2 [email or web address] Information not available 11/29/2024 How Much Tobacco Do You Smoke? No [email or web address] Information not available 11/29/2024 Do You Use Sunscreen Routinely? Yes Information not available 11/19/2020 How Many Years Have You Smoked Tobacco? 0 [email or web address] Information not available 11/29/2024 Have You Used IV Drugs? No Information not available 11/29/2024 Do You Have Difficulty Walking Or Climbing Stairs? No Information not available 05/20/2022 Sex: Unknown Functional Status Question Answer Note LastModified by Organizat ion Details LastModified Time Do you use any illicit or recreational drugs? No Information not available 11/19/2020 What is your level of alcohol consumption? None [email or web address] Information not available 11/29/2024 Are you able to walk independently without assistance or assistive devices? YESWOREST Information not available 11/19/2020 Are you able to care for yourself independently? Yes Information not available 05/20/2022 What is your occupation? Disabled Information not available 11/29/2024 Do you have difficulty dressing, bathing, grooming, or toileting? No Information not available 05/20/2022 What is your exercise level? Occasional Information not available 11/19/2020 Mental Status Question Answer Note LastModified by Organization D etails LastModified Time Do you feel stressed (tense, restless, nervous, or anxious, or unable to sleep at night)? [id number] [email or web address] Information not available 11/29/2024 Family History Relationship Description Onset Age of this Age Resolved Age Notes LastModified by Organization Details LastModified Time Brother Congenital heart disease [email or web address] Not available 2024 11:56:36 Father Congenital heart disease [email or web address] Not available 2024 11:56:36 Father Diabetes mellitus Not available 2020 11:25:27 Maternal Aunt Congenital heart disease [email or web address] Not available 2024 11:56:36 Maternal Grandmother Congenital heart disease [email or web address] Not available 2024 11:56:36 Maternal Grandmother Diabetes mellitus Not available 2020 11:25:54 Maternal Grandmother Malignant neoplasm of breast Not available 2020 11:26:37 Maternal Grandmother Fibromyalgia [email or web address] Not available 11/29/2024 11:56:36 Maternal Grandmother Mental disorder Not available 2020 11:27:41 Maternal Uncle Congenital heart disease [email or web address] Not available 2024 11:56:36 Maternal Uncle Mental disorder Not available 2020 11:27:33 Mother Congenital heart disease [email or web address] Not available 2024 11:56:36 Mother Diabetes mellitus Not available 2020 11:25:59 Mother Fibromyalgia [email or web address] Not avail able 11/29/2024 11:56:36 Maternal Grandfather Diabetes mellitus Not available 2020 11:25:45 Maternal Grandfather Malignant neoplasm of colon Not available 2020 11:26:09 Medical History Condition Response Anxiety Disorder Y Diabetes Y Pulmonary (TB, Asthma) Y Other Y Depression/ depression Y Hematologic disorders Fibromyalgia Y Hypertension Y Neurologic/Epilepsy Y Gynecological History Statement/Question Response Abnormal Pap N Date of Last Mammogram 12/04/2020 On BCP's at Conception? N N Was last menstrual period normal Y STIs/STDs N HPV Vaccine N 11 Current Control Method Hysterectom y Age at First Child 18 If Post Menopausal, Age at Menopause 52 Date of Last Colonoscopy Sexually Active? N Menses Monthly N Age of first menstrual cycle 13 Date of Last Pap Smear 01/10/2018 Sexual Problems? N Desired Control Method Sterilizati on LMP Unknown N Obstetrics History GPAL:G 3 P 2 0 1 2 Type Value Full Term 2 Spontaneous 1 Living 2 Total 3 Past Encounters Encounter ID Performer Location Encounter Start Date Encounter Closed Date Diagnosis/Indication Diagnosis SNOMED-CT Code Diagnosis ICD10 Code Diagnosis IMO Codes Diagnosis Note [id number] [facility] [address] [address] 11/19/2020 11:27:50 11/19/2020 16:13:33 Gynecologic examination [id number] Z01.419 Take Calcium with Vitamin D 12-1500mg daily. Do monthly self breast exams. It is advised to get annual flu shot in the fall and she could obtain at [facility] or [facility] clinic. If you haven't received the Tdap vaccine in the last 10 years you should obtain one as well. Have mammogram yearly, bone density every 2-3 years and colonoscop y every 5-10 years depending on findings and history. Engage in daily exercise of low impact aerobic exercise 45-60 minutes 4-5 times weekly. Avoid tobacco and illicit drugs as well as using moderation with alcohol intake less than 1-2 8 oz beverages daily. This lifestyle behavior pattern will lead to less health conditions and longer life span. If BMI greater than 25 weight watchers or dietary consult advised. Questions have been answered. Patient appears to understand jodi tran, but if you have any further questions call or respond to this email Pap/hpv d/c unless otherwise indicated per asccp.USPS TF recommends against screening for cervical cancer in women older than 65yo/Surgi kalina induced menopause for non-cancer indication s who have had adequate prior screening & are not otherwise at high risk for cervical cancer. Hysterecto my 1998-still with ovaries for pelvic pain non-cancer related issues.Reta mo orderedDex a n/aColon PCP managed. Menopausal symptom 68833 [id number] N95.1 PCP put her on Low dose Estradiol 0.5mg daily for climacteri c & irritabili ty.Take Estradiol 0.5mg plus Prometrium 100mg daily for next 6-8wks then f/u. Hx of hysterecto my for non-cancer indication s (kept ovaries). RTO x 6-8wks for med check [id number] CAROL Mares[facility] [address] [address] 12/31/2020 13:58:29 12/31/2020 14:59:33 Menopausal symptom [id number] N95.1 When reviewing patient health history she voiced that she had a PE during hysterecto my in 1997 from complicati ons with anesthesia . NO clotting disorders etc; but there still is a slight increase risk for clotting issues. We d/c estrogen therapy & agreed on Prometrium & Low dose SSRI for voiced irritation .I have explained that estrogen is contraindi cated in those with Hx of DVT/PE/Tere ts.Her PCP initially started her on this medication initially; but after speaking with the patient I feel perhaps her irritation may be more from stress & anxiety vs menopause sx's.She is agreeable to stopping it. Counseled on r/b's, most common side effects of this therapy with instructio ns to stop medication with any significan t abnormal change in mood especially with thoughts of suicide/se lf-harm/jones rm to others. Understand ing verbalized . RTO x 2mos Time spent in visit is a total of 15 mins with at least 50% of visit consisting of counseling and review of plan of care. Additional precaution marielos measures were taken to minimize potential exposure to the Covid-19 virus during this patient s visit, including available hand psychiatric attendant upon arrive, temperatur e check and being asked a series of screening questions. All staff wore face coverings during this encounter, as well as provided additional cleaning and sanitizing of all surfaces, including counter-to ps, pens, chairs, door handles, light switches, etc, prior to and following the patient s visit. [id number] Katty Ceja , [facility] [address] [address] 01/21/2021 11:18:23 01/21/2021 14:43:26 Menopausal symptom [id number] N95.1 F41.1 Doing well on Prometrium ;decrease night sweats; will continue.D oes not feel Celexa 10mg helping anxiety as much.Will trial Celexa 20mg daily & f/u x 2wks.We did discuss that she may need an entirely different medication for anxiety if 20mg is not helping. Time spent in visit is a total of 26 mins with at least 50% of visit consisting of counseling and review of plan of care. Additional precaution marielos measures were taken to minimize potential exposure to the Covid-19 virus during this patient s visit, including available hand psychiatric attendant upon arrive, temperatur e check and being asked a series of screening questions. All staff wore face coverings during this encounter, as well as provided additional cleaning and sanitizing of all surfaces, including counter-to ps, pens, chairs, door handles, light switches, etc, prior to and following the patient s visit. Acute absc ess of skin and/or subcutaneous tissue [id number] L02.91 Area on breast bone inbetween breasts of a small pea size boil like lesion that was scratched by patients grandbaby & feels this made it worse.No other abn's & mammo updated 11/2020 wnl. RTO x 2wks med check [id number] Katty Ceja [facility] [address],[facility] [place] [address] 02/04/2021 15:51:30 02/04/2021 16:43:38 Night sweats [id number] R61 Will continue prometrium which is helping her night sweats/sle ep. Generalize d anxiety disorder [id number] F41.1 After discussing her progress patient would like to continue the Celexa 20mg since it has only been 4wks of using this therapy.Brynn menard stable & wants to see how she does through the holidays.R TO x 3mos med check or sooner if needed.We can increase to Celexa 40mg moving forward if needed. Time spent in visit is a total of 15 mins with at least 50% of visit consisting of counseling and review of plan of care. Additional precaution marielos measures were taken to minimize potential exposure to the Covid-19 virus during this patient s visit, including available hand psychiatric attendant upon arrive, temperatur e check and being asked a series of screening questions. All staff wore face coverings during this encounter, as well as provided additional cleaning and sanitizing of all surfaces, including countertop s, pens, chairs, door handles, light switches, etc, prior to and following the patient s visit. [id number] Katty Ceja , [facility] [address] [address] 04/28/2021 14:17:08 04/28/2021 15:29:44 Menopausal symptom 52970844 N95.1 F41.1 Doing well on Prometrium ;decrease night sweats; will continue.D oing extremely well on Celexa 40mg daily for anxiety. Time spent in visit is a total of 15 mins with at least 50% of visit consisting of counseling and review of plan of care. Additional precaution marielos measures were taken to minimize potential exposure to the Covid-19 virus during this patient s visit, including available hand psychiatric attendant upon arrive, temperatur e check and being asked a series of screening questions. All staff wore face coverings during this encounter, as well as provided additional cleaning and sanitizing of all surfaces, including counter-to ps, pens, chairs, door handles, light switches, etc, prior to and following the patient s visit. Urge incon tinence of urine [id number] N39.41 Will refer for further assessment of UUI. [id number] Katty Ceja , [facility] [address] [address] 05/20/2022 14:35:51 05/20/2022 17:28:19 Gynecologic examination 99382166 Z01.419 Take Calcium with Vitamin D 12-1500mg daily. Do monthly self breast exams. It is advised to get annual flu shot in the fall and she could obtain at [facility] or [facility] care clinic. If you haven't received the Tdap vaccine in the last 10 years you should obtain one as well. Have mammogram yearly, bone density every 2-3 years and colonoscop y every 5-10 years depending on findings and history. Engage in daily exercise of low impact aerobic exercise 45-60 minutes 4-5 times weekly. Avoid tobacco and illicit drugs as well as using moderation with alcohol intake less than 1-2 8 oz beverages daily. This lifestyle behavior pattern will lead to less health conditions and longer life span. If BMI greater than 25 weight watchers or dietary consult advised. Questions have been answered. Patient appears to understand instructio ns, but if you have any further questions call or respond to this email Pap/hpv d/c unless otherwise indicated per asccp.USPS TF recommends against screening for cervical cancer in women older than 65yo/Surgi kalina induced menopause for non-cancer indication s who have had adequate prior screening & are not otherwise at high risk for cervical cancer. Hysterecto my 1998-still with ovaries for pelvic pain non-cancer related issues.Reta mo orderedDex a PCPColon PCP managed.St op HRT until seizure disorder is managed by specialist . Skin irritation [id number] L30.9 Check on dermskin ulceration s/discolor ed areas on chest.Help find derm she can get areas on chest looked at.Lloyd cortes skin cancer vs other skin condition. Areas are painful.Ra ndomly pop up but leave white discolored areas painful to touch.Unce rtain what Derm is covered by her insurance. Screening mammography 24 122686 Z12.31 [id number] [facility] [address] [address] 12/28/2022 11:52:42 12/28/2022 12:25:57 Urinary symptoms [id number] R39.9 Vaginitis 19728178 N76.0 Suspect uti and yeast on examSent std/vag testing to r/o any other infections . Counseled on medication R/B's, Most common side effects, & use. All questions were answered to patient satisfacti on. Time spent in visit is a total of 15 mins with at least 50% of visit consisting of counseling and review of plan of care. [id number] CAROL Huang [facility] [address] [address] 11/29/2024 11:55:42 11/29/2024 15:23:37 Gynecologic examination 81188608 Z01.734 [id number] WWEpostmen opausalPap - not indicatedS TI screen - declinedMa mmogram - order givenColon cancer screening - UTD/PCPDex a - n/aRoutine labs - UTD/PCPRTC in 1 yr or sooner if needed Do monthly self breast exams.It is advised to get annual flu shot in the fall and she could obtain at local pharmacy. If you haven't received the Tdap vaccine in the last 10 years you should obtain one as well.Have mammogram yearly, bone density every 2-3 years and stay up to date on colon cancer screening. Engage in regular exercise. Avoid tobacco and illicit drugs. This lifestyle behavior pattern will lead to less health conditions and longer life span. If BMI greater than 25 dietary consult advised.Qu estions have been answered. Mass of left breast [id number] 1261032 N63.20 [id number] order given for diagnostic mammogram with left breast u/s Health Concerns Section Related Observation LastModified by Organization Detai ls LastModified Time None Recorded Concern Status LastModified by Organization Details LastModified Time None Recorded Advance Directives Directive Y: Payers Insurance Date Sequence Insurance Name Policy Number Policy Desir Covered Member ID Desir Member ID Guarantor Name 12/03/2024 1 MARIANNA Replicon [facility] - DOS ON OR AFTER 20 (MEDICAID REPLACEMENT - HMO) Ruchi Jones [id number] Ruchi Jones Notes Date Note Type Note Provider Name and Address Organization Details Recorded Time 1 text/html ROS as noted in the HPI Here today for med check of Prometrium & Celexa 20mg for night sweats & anxietyFeels a notable improvement in this using this regimen.Still slight bit of anxiety at times when feeling stressed-noticed 75-85% improvement after 4wks.Night sweats are managed well with prometrium 100mg PO HS. Neg suicidal thoughts/thoughts of self harmNeg sleep issuesNeg Appetite changes [facility] [address], [place], [address], [facility] 02/04/2021 16:43:35 2 text/html ROS as noted in the HPI Here today for medication check.Also mentioned needs referral for UUI. [facility] [address], [place], [address], [facility] 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 For vaginal bleeding, patient reportshistory of menopause having occurredandno history of post menopausal bleeding. For urinary symptoms, patient reportsno hematuria,no incontinence,no nocturia, andno urinary frequency. For vulva, patient reportsno genital lesionandno vulvar atrophy. For vagina, patient reportsnormal vaginal dischargeandno vaginal atrophy.Breast symptomsFor breast, patient reportsno breast lump,no nipple discharge, andno breast pain.Psychological symptomsFor sexual complaints, patient reportsno sexual complaints. For psychological symptoms, patient reportsno depressionandno anxiety.Preventative measuresFor preventive measures, patient reportsencourage regular mammograms starting age 40,encourage self breast examination,encourage regular exercise,encourage no tobacco use,needs to schedule mammogram, andhistory of recent colonoscopy. Katty Ceja [facility] [address], [place], [address], [facility] 05/20/2022 16:37:04 3 text/html Vaginal/Vulvar ProblemReported by PatientHere today for vag d/c, itching, irritation and urinary urgency/dysuria for the last few days after visiting her boyfriend. Wants std screening Neg pain of abd/pelvis/flank++ urinary sx'sNeg GI sx'sNeg N/V/F/C/DNeg Vag odor,ROS as noted in the HPI CAROL Mares- [address], [place], [address], [facility] 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 For vaginal bleeding, patient reportshistory of menopause having occurredandno history of post menopausal bleeding. For urinary symptoms, patient reportsno hematuria,no incontinence,no nocturia, andno urinary frequency. For vulva, patient reportsno genital lesionandno vulvar atrophy. For vagina, patient reportsnormal vaginal dischargeandno vaginal atrophy.Breast symptomsFor breast, patient reportsbreast lumpandbreast painbut reportsno nipple discharge.Psychological symptomsFor sexual complaints, patient reportsno sexual complaints. For psychological symptoms, patient reportsno depressionandno anxiety.Preventative measuresFor preventive measures, patient reportsencourage regular mammograms starting age 40,encourage self breast examination,encourage regular exercise, andencourage no tobacco use.58yo wweh/o hyst (ovaries remain) for AUB/pain (non-cancerous indications)no h/o abnormal papsmammogram last olonoscopy UTD/PCP orders left breast lump/pain , noticed 1 wk agono redness or nipple discharge CAROL Huang [address], [place], [address], [facility] 11/29/2024 15:16:56 OBGyn Episode Ob Episode Information Episode Created Date Number of Fetuses Patient Bloodtype Patient rh Status Prepregnancy Weight lbs Domestic Partner Domestic Partner Phone Father Name Resident Care Manager Rn Status 11/20/19 21 1 CLOSED Fetus Data First Name Last Name Admitted to NICU Weight (g) Sex Living Outcome Pediatric Complications Fetus ID Race Codes Race Delivery Type [id number] Vaginal Delivery Gianni Calculation Initial Gianni Date Initial Exam Date Initial Exam Provider Initial Ultrasound Date Last Menstrual Period Date Ultra Sound Weeks Gestation 0 Eighteen To Twenty Week Gianni Update Ultra Sound Date Fundal Height At Umbil Quickening Date Ultra Sound Latest Weeks Gestation Final Gianni Confirmed By Final Gianni Confirmed Date Final Gianni Date Ultra Sound Latest Days Gestation 0 0 Menstrual History Last Menstrual Date Menses Monthly On Bcp Conception Prior Menses Frequency Hcg Plus Date Menarche Onset Age Delivery Information Delivery Date Delivery Type Labor Anesthesia Weeks Gestation Incision Type Labor Labor Length Hrs Delivered By Post Complications Tubal Sterilization Discharge Date Comments 5 Discharge Information Feeding Method Contraceptive Method Maternal HG B and HCT Levels Ob Episode Information Episode Created Date Number of Fetuses Patient Bloodtype Patient rh Status Prepregnancy Weight lbs Domestic Partner Domestic Partner Phone Father Name Resident Care Manager Rn Status 11/20/19 21 1 CLOSED Fetus Data First Name Last Name Admitted to NICU Weight (g) Sex Living Outcome Pediatric Complications Fetus ID Race Codes Race Delivery Type [id number] Vaginal Delivery Gianni Calculation Initial Gianni Date Initial Exam Date Initial Exam Provider Initial Ultrasound Date Last Menstrual Period Date Ultra Sound Weeks Gestation 0 Eighteen To Twenty Week Gianni Update Ultra Sound Date Fundal Height At Umbil Quickening Date Ultra Sound Latest Weeks Gestation Final Gianni Confirmed By Final Gianni Confirmed Date Final Gianni Date Ultra Sound Latest Days Gestation 0 0 Menstrual History Last Menstrual Date Menses Monthly On Bcp Conception Prior Menses Frequency Hcg Plus Date Menarche Onset Age Delivery Information Delivery Date Delivery Type Labor Anesthesia Weeks Gestation Incision Type Labor Labor Length Hrs Delivered By Post Complications Tubal Sterilization Discharge Date Comments 2 Discharge Information Feeding Method Contraceptive Method Maternal HG B and HCT Levels
--- OUTSIDE RECORDS SUMMARY | 2025-01-08 12:15 | XMS_ITS | Clinical Summary ---
Author Organization [facility] Address [address] [address] Phone Care Team Providers Care Manager Implementation Name Role Phone Louie Ahn MD Primary [...] Colonoscopy 01/11/2020 01/10/2019 Colorectal Cancer Screening 01/11/2020 Influenza Immunization (#1) 2024 SARS-COV-2 Immunization ( season) 2024 02/03/2021, 06/06/2020, 05/20/2020 Respiratory Syncytial Virus (RSV) Immunization (Adult) (1 [...] Relevant to Health Maintenance Insurance Care Teams Manager Implementation Relationship Specialty Start Date End Date Louie Ahn MD PCP - General Family Medicine 01/16/19
== END 2025-01-08 10:12 | disposition home or self-care (01) ==
LOC: CHSIMG 10:13
PROVIDERS: PCP Family Medicine Adolescent Medicine; Visit Provider Nurse Practitioner
DX: N63.20 Unspecified lump in the left breast, unspecified quadrant (principal)
CPT/HCPCS: 76642; 77062; 77066; G0279